=== PATIENT | female | born 1980 | race Caucasian/White ===

== ENCOUNTER 2018-06-02 11:31 | Inpatient (IN) | payer OTHER ==
[2018-06-02 12:50] LABS: ALB/GLOB RATIO 0.9 (1.1-1.8)
[2018-06-02 12:59] LABS: ALBUMIN 4.3 g/dL (3.0-4.8); ALT/SGPT 17 U/L (7-56); AST/SGOT 22 U/L (14-36); BLOOD UREA NITROGEN 14 mg/dL (7-21); CALCIUM 9.7 mg/dL (8.4-10.5); GFR NON-AFRICAN AMERICAN > 60
[2018-06-02 13:03] LABS: INR 1.02; PARTIAL THROMBOPLASTIN TIME 20.6 Seconds (25.1-36.5); PROTHROMBIN TIME 11.7 SECONDS (9.4-12.5)
[2018-06-02 13:12] LABS: BASO # 0.02 K/mm3 (0.0-2.0); BASO % 0.1 % (0.0-3.0); EOS # 0.1 (0.0-0.7); EOS % 0.4 % (1.5-5.0); GRAN # 11.65 (1.4-6.5); GRAN % 85.8 % (50.0-68.0); HEMOGLOBIN 10.9 g/dL (12.0-16.0); LYMPH # 1.4 (1.2-3.4); LYMPH % 10.5 % (22.0-35.0); MEAN CELL VOLUME 68.4 fl (80.0-105.0); MEAN CORPUSCULAR HEMOGLOBIN 23.3 pg (25.0-35.0); MEAN CORPUSCULAR HGB CONC 34.1 g/dl (31.0-37.0); MONO # 0.4 (0.1-0.6); MONO % 3.2 % (1.0-6.0); PLATELET COUNT 254 10^3/uL (120.0-450.0); RBC 4.68 10^6/uL (3.5-6.1); RED CELL DISTRIBUTION WIDTH 19.8 % (11.5-14.5); WHITE BLOOD COUNT 13.6 10^3/uL (4.5-11.0)
[2018-06-02 13:38] LABS: URINE BILIRUBIN NEGATIVE (NEGATIVE); URINE BLOOD NEGATIVE (NEGATIVE); URINE GLUCOSE (UA) NEGATIVE (NEGATIVE); URINE LEUKOCYTE ESTERASE NEGATIVE Leu/uL (NEGATIVE); URINE PROTEIN NEGATIVE mg/dL (<30 mg/dL); URINE UROBILINOGEN 0.2 E.U./dL (<1 E.U./dL)
[2018-06-02 13:44] LABS: URINE APPEARANCE CLEAR (CLEAR); URINE COLOR LIGHT YELLOW (YELLOW)
--- NOTE | 2018-06-02 14:13 | ED PDOC ---
Arrival/HPI - General Chief Complaint: Shortness Of Breath Time Seen by Provider: 06/02/18 12:08 Historian: Patient - History of Present Illness Narrative History of Present Illness (Text): 06/02/18 14:10 A 38 year old female, whose past medical history includes recent surgery of an arthroscopy repair on her left knee, presents to the emergency department complaining of shortness of breath and chest pain since earlier this morning. Patient describes pain as pressure and heaviness on her chest. Patient reports symptoms occurred when she was trying to grab a box of cereal from a cabinet when she suddenly started having chest pain and shortness of breath with lightheadedness. Patient denies any fever, chills, diarrhea, nausea, vomiting, urinary symptoms, back pain, neck pain, headache, dizziness, or any other complaints. Time/Duration: 4-6 hours (earlier this morning) Symptom Onset: Sudden Symptom Course: Unchanged Activities at Onset: Light Context: Home Past Medical History - Provider Review Nursing Documentation Reviewed: Yes - Cardiac Hx Hypertension: Yes - Hematological/Oncological Hx Anemia: Yes - Musculoskeletal/Rheumatological Hx Musculoskeletal Disorders: Yes Other/Comment: Left knee sx 05/22/18 - Gastrointestinal Hx Gastrointestinal Disorders: No - Genitourinary/Gynecological Hx Genitourinary Disorders: No - Psychiatric Hx Psychophysiologic Disorder: No Hx Substance Use: No - Surgical History Other/Comment: Left knee 05/22/18 - Anesthesia Hx Anesthesia: Yes Family/Social History - Physician Review Nursing Documentation Reviewed: Yes Family/Social History: No Known Family HX Smoking Status: Never Smoked Hx Alcohol Use: No Hx Substance Use: No Allergies/Home Meds Allergies/Adverse Reactions: Allergies No Known Allergies Allergy (Verified 06/02/18 11:40) Home Medications: Home Meds Medication Instructions Recorded Confirmed amLODIPine [Norvasc] 10 mg PO DAILY 06/02/18 06/02/18 Review of Systems - Physician Review All systems were reviewed & negative as marked: Yes - Review of Systems Constitutional: absent: Fevers, Night Sweats Respiratory: SOB Cardiovascular: Chest Pain, MCGOVERN Gastrointestinal: absent: Diarrhea, Nausea, Vomiting Genitourinary Female: absent: Urine Output Changes Musculoskeletal: absent: Back Pain, Neck Pain Neurological: absent: Headache, Dizziness Physical Exam Vital Signs Reviewed: Yes Vital Signs Temp Pulse Resp BP Pulse Ox 06/02/18 11:51 98 06/02/18 11:40 98.3 F 100 H 19 141/90 99 Temperature: Afebrile Blood Pressure: Normal Pulse: Tachycardic Respiratory Rate: Normal Appearance: Positive for: Well-Appearing - Systems Exam Head: Present: Atraumatic, Normocephalic Pupils: Present: PERRL Extroacular Muscles: Present: EOMI Conjunctiva: Present: Normal Respiratory/Chest: Present: Clear to Auscultation, Good Air Exchange. No: Respiratory Distress, Accessory Muscle Use Cardiovascular: Present: Regular Rate and Rhythm, Normal S1, S2. No: Murmurs Abdomen: No: Tenderness, Distention, Peritoneal Signs Back: Present: Normal Inspection Upper Extremity: Present: Normal Inspection. No: Cyanosis, Edema Lower Extremity: Present: Normal Inspection. No: Edema Neurological: Present: GCS=15, CN II-XII Intact, Speech Normal Skin: Present: Warm, Dry, Normal Color. No: Rashes Psychiatric: Present: Alert, Oriented x 3, Normal Insight, Normal Concentration Medical Decision Making ED Course and Treatment: 06/02/18 14:14 Impression: 38 year old female presents to the emergency department complaining of shortness of breath and chest pain. Plan: -- Angio Chest CT to r/o PE -- EKG -- Labs -- Chest X-ray -- Aspirin -- Reassess and disposition Prior Visits: Notes and results from previous visits were reviewed. Progress Notes: 06/02/18 19:04 Pt was hemodynamically stable and in no distress in ED EKG NSR @ 100bpm with moderate LVH N-stemi Labs was reviewed and elevated D-dimer , troponin and leukocytosis chest xray IMPRESSION: No active disease. chest CT IMPRESSION: Extensive pulmonary thromboembolism. Thrombus is seen in the periphery of the left main pulmonary artery with what appears to be occlusive thrombus left lower lobe and more peripheral segmental thrombi left upper lobe. Additional pulmonary embolism detected in right lower and right upper lobes. 6 mm pulmonary nodule left upper lobe. Elective follow-up recommended. PT was started on Heparin in ED. Case was DANYELLE Bowden who also saw pt by the bedside and accepted pt for admission to ICU Case was also DANYELLE Cao, Intensivsit and he accepted pt to ICU and saw pt in ED. All result and plan was DW the pt and she verbalized understanding. - Critical Care Critical Care Minutes: 45 minutes - Lab Interpretations Lab Results: 06/02/18 13:00 06/02/18 12:25 Lab Results 06/02/18 13:10: Urine Color Light yellow, Urine Appearance Clear, Urine pH 6.0, Ur Specific [place] 1.010, Urine Protein Negative, Urine Glucose (UA) Negative, Urine Ketones Negative, Urine Blood Negative, Urine Nitrate Negative, Urine Bilirubin Negative, Urine Urobilinogen 0.2, Ur Leukocyte Esterase Negative 06/02/18 13:00: WBC 13.6 H, RBC 4.68, Hgb 10.9 L, Hct 32.0 L, MCV 68.4 L, MCH 23.3 L, MCHC 34.1, RDW 19.8 H, Plt Count 254, Gran % 85.8 H, Lymph % (Auto) 10.5 L, [place] % (Auto) 3.2, Eos % (Auto) 0.4 L, Baso % (Auto) 0.1, Gran # 11.65 H, Lymph # (Auto) 1.4, [place] # (Auto) 0.4, Eos # (Auto) 0.1, Baso # (Auto) 0.02 06/02/18 12:25: Sodium 138, Potassium 4.3, Chloride 107, Carbon Dioxide 21, Anion Gap 14, BUN 14, Creatinine 0.6 L, Est GFR ( Amer) > 60, Est GFR (Non-Af Amer) > 60, Random Glucose 98, Calcium 9.7, Magnesium 2.0, Total Bilirubin 0.4, AST 22, ALT 17, Alkaline Phosphatase 62, Lactate Dehydrogenase 646, Total Creatine Kinase 45, Troponin I Pending, NT-Pro-B Natriuret Pep Pending, Total Protein 9.0 H, Albumin 4.3, Globulin 4.7, Albumin/Globulin Ratio 0.9 L 06/02/18 12:25: PT 11.7, INR 1.02, APTT 20.6 L, D-Dimer, Quantitative 4194 H - RAD Interpretation Radiology Orders: 06/02/18 12:18 CHEST PORTABLE [RAD] Stat 06/02/18 13:06 ANGIO CHEST PE PROTOCOL [CT] Stat - Medication Orders Current Medication Orders: Discontinued Medications Aspirin (Aspirin) 325 mg PO STAT STA Stop: 06/02/18 12:18 Last Admin: 06/02/18 12:25 Dose: 325 mg - Scribe Statement The provider has reviewed the documentation as recorded by the Colette Olivera All medical record entries made by the Colette were at my direction and personally dictated by me. I have reviewed the chart and agree that the record accurately reflects my personal performance of the history, physical exam, medical decision making, and the department course for this patient. I have also personally directed, reviewed, and agree with the discharge instructions and disposition. Disposition/Present on Arrival - Present on Arrival Any Indicators Present on Arrival: No History of DVT/PE: No History of Uncontrolled Diabetes: No Urinary Catheter: No History of Decub. Ulcer: No History Surgical Site Infection Following: None - Disposition Have Diagnosis and Disposition been Completed?: Yes Diagnosis: Pulmonary embolism, DVT (deep venous thrombosis) Disposition: HOSPITALIZED Disposition Time: 15:15 Patient Plan: Admission Patient Problems: Current Active Problems Problem Status Onset Pulmonary embolism Acute Condition: GUARDED
--- NOTE | 2018-06-02 14:20 | RAD ---
Date of service: 06/02/2018 HISTORY: chest pain COMPARISON: No prior. FINDINGS: LUNGS: No active pulmonary disease. PLEURA: No significant pleural effusion identified, no pneumothorax apparent. CARDIOVASCULAR: No atherosclerotic calcification present Normal. OSSEOUS STRUCTURES: No significant abnormalities. VISUALIZED UPPER ABDOMEN: Normal. OTHER FINDINGS: None. IMPRESSION: No active disease.
[2018-06-02 14:29] LABS: BARBITURATES, UR NEGATIVE (NEGATIVE); BENZODIAZEPINES, UR NEGATIVE (NEGATIVE); OPIATES, UR NEGATIVE (NEGATIVE); PHENCYCLIDINE, UR NEGATIVE (NEGATIVE)
[2018-06-02 14:32] LABS: B-TYPE NATRIURETIC PEPTIDE 44.2 pg/mL (0-450); TROPONIN I 0.25 ng/mL
[2018-06-02] MEDS ORDERED: Iohexol 350 MG/100 ML VIAL ONE (14:49)
[2018-06-02] MEDS ORDERED: Heparin25000 units/250ml 1/2NS 25,000 UNITS/250 ML BAG IV PRN (15:30)
--- NOTE | 2018-06-02 15:31 | CT ---
Date of service: 06/02/2018 PROCEDURE: CT Chest with contrast (Pulmonary Angiogram) HISTORY: SOB/chest pain COMPARISON: None available. TECHNIQUE: Axial computed tomography images were obtained of the chest in the pulmonary arterial phase of enhancement. Coronal and sagittal reformatted images were created and reviewed. Intravenous contrast dose: 100 cc Omnipaque 350 Mean Hounsfield value in the main pulmonary artery: 265.44 Radiation dose: Total exam DLP = 475.90 mGy-cm. This CT exam was performed using one or more of the following dose reduction techniques: Automated exposure control, adjustment of the mA and/or kV according to patient size, and/or use of iterative reconstruction technique. FINDINGS: PULMONARY ARTERIES: Extensive pulmonary embolus. There appears to be a complete occlusion of the left lower lobe pulmonary artery. Thrombus can also be seen in the left main pulmonary artery and segmental branches of the left upper lobe pulmonary artery. Additional emboli noted in segmental and subsegmental branches right lower lobe. Smaller thrombus seen in the right upper lobe. No evidence of right ventricular strain. The interventricular septum assumes a normal configuration. There is no evidence of reflux into the IVC or hepatic arteries. AORTA: No acute findings. No thoracic aortic aneurysm. No atherosclerotic calcification or mural plaque present. LUNGS: No evidence of pulmonary infarction. 6 mm peripheral nodule left upper lobe. PLEURAL SPACES: Unremarkable. No effusion or pneumothorax. HEART: Unremarkable. No cardiomegaly. No significant pericardial effusion. LYMPH NODES: No lymphadenopathy. BONES, CHEST WALL: Unremarkable. No fracture or destructive lesion OTHER FINDINGS: Unremarkable. IMPRESSION: Extensive pulmonary thromboembolism. Thrombus is seen in the periphery of the left main pulmonary artery with what appears to be occlusive thrombus left lower lobe and more peripheral segmental thrombi left upper lobe. Additional pulmonary embolism detected in right lower and right upper lobes. 6 mm pulmonary nodule left upper lobe. Elective follow-up recommended. Critical results protocol: Study completed at 15:00. Verbal results provided at 15:21. I spoke directly with the attending physician in the emergency department Dr. Ness.
--- NOTE | 2018-06-02 15:42 | CP.PCM.HP ---
<Gt Dunlap - Last Filed: 06/02/18 15:39> History of Present Illness - History of Present Illness History of Present Illness: 38 year old female with past medical history of HTN, microcytic anemia, and left knee arthroscopic surgery presents to the hospital for sudden onset shortness of breath that began 7 hours ago. Patient states she was reaching for cereal and felt severe pressure in her chest that led to shortness of breath. Patient states the pain is constant and substernal. She tried using a nebulizer for her symptoms which did not help. Patient had left knee surgery at [facility] on 05/22/18. She has been mainly immobile since her surgery, only getting us to use the restroom. Patient was advised to take aspirin after her surgery and has been compliant. Denies nausea, vomiting, diarrhea, fever, chills, dysuria, headaches. PMH: HTN, microcytic anemia Surgical Hx: Left knee surgery Family Hx: Parents from COPD, Asthma Social Hx: Denies tobacco or illicit drug use. Admits to occasional alcohol use Medications: Norvasc 10 mg daily, OCP Allergies: NKDA Present on Admission - Present on Admission Any Indicators Present on Admission: No Review of Systems - Review of Systems Review of Systems: 12 point ROS as per HPI, otherwise negative Past Patient History - Past Social History Smoking Status: Never Smoked - CARDIAC Hx Hypertension: Yes - HEMATOLOGICAL/ONCOLOGICAL Hx Anemia: Yes - MUSCULOSKELETAL/RHEUMATOLOGICAL Hx Musculoskeletal Disorders: Yes Other/Comment: Left knee sx 05/22/18 - GASTROINTESTINAL Hx Gastrointestinal Disorders: No - GENITOURINARY/GYNECOLOGICAL Hx Genitourinary Disorders: No - PSYCHIATRIC Hx Psychophysiologic Disorder: No Hx Substance Use: No - SURGICAL HISTORY Other/Comment: Left knee 05/22/18 - ANESTHESIA Hx Anesthesia: Yes Meds Allergies/Adverse Reactions: Allergies Allergy/AdvReac Type Severity Reaction Status Date / Time No Known Allergies Allergy Verified 06/02/18 11:40 Physical Exam - Constitutional Appears: Non-toxic, No Acute Distress - Head Exam Head Exam: ATRAUMATIC, NORMAL INSPECTION, NORMOCEPHALIC - Eye Exam Eye Exam: EOMI, Normal appearance - ENT Exam ENT Exam: Mucous Membranes Moist, Normal Exam - Neck Exam Neck exam: Positive for: Normal Inspection - Respiratory Exam Respiratory Exam: Decreased Breath Sounds, NORMAL BREATHING PATTERN. absent: Rales, Rhonchi, Wheezes - Cardiovascular Exam Cardiovascular Exam: Tachycardia, REGULAR RHYTHM, +S1, +S2 - GI/Abdominal Exam GI & Abdominal Exam: Normal Bowel Sounds, Soft, Tenderness (Mild) - Extremities Exam Extremities exam: Positive for: pedal edema (+1 edema b/l) - Neurological Exam Neurological exam: Alert, CN II-XII Intact, Oriented x3 - Psychiatric Exam Psychiatric exam: Normal Affect, Normal Mood - Skin Skin Exam: Intact, Normal Color, Warm Results - Vital Signs Recent Vital Signs: Last Vital Signs Temp 97.9 F 06/02/18 14:18 Pulse 96 H 06/02/18 14:18 Resp 18 06/02/18 14:18 BP 122/75 06/02/18 14:18 Pulse Ox 96 06/02/18 14:18 - Labs Result Diagrams: 06/02/18 13:00 06/02/18 12:25 Labs: Laboratory Results - last 24 hr 06/02/18 06/02/18 06/02/18 12:25 12:25 13:00 WBC 13.6 H RBC 4.68 Hgb 10.9 L Hct 32.0 L MCV 68.4 L MCH 23.3 L MCHC 34.1 RDW 19.8 H Plt Count 254 Gran % 85.8 H Lymph % (Auto) 10.5 L [place] % (Auto) 3.2 Eos % (Auto) 0.4 L Baso % (Auto) 0.1 Gran # 11.65 H Lymph # (Auto) 1.4 [place] # (Auto) 0.4 Eos # (Auto) 0.1 Baso # (Auto) 0.02 PT 11.7 INR 1.02 APTT 20.6 L D-Dimer, Quantitative 4194 H Sodium 138 Potassium 4.3 Chloride 107 Carbon Dioxide 21 Anion Gap 14 BUN 14 Creatinine 0.6 L Est GFR ( Amer) > 60 Est GFR (Non-Af Amer) > 60 Random Glucose 98 Calcium 9.7 Magnesium 2.0 Total Bilirubin 0.4 AST 22 ALT 17 Alkaline Phosphatase 62 Lactate Dehydrogenase 646 Total Creatine Kinase 45 Troponin I 0.25 H* NT-Pro-B Natriuret Pep 44.2 Total Protein 9.0 H Albumin 4.3 Globulin 4.7 Albumin/Globulin Ratio 0.9 L Urine Color Urine Appearance Urine pH Ur Specific [place] Urine Protein Urine Glucose (UA) Urine Ketones Urine Blood Urine Nitrate Urine Bilirubin Urine Urobilinogen Ur Leukocyte Esterase Urine Opiates Screen Urine Methadone Screen Ur Barbiturates Screen Ur Phencyclidine Scrn Ur Amphetamines Screen U Benzodiazepines Scrn U Oth Cocaine Metabols U Cannabinoids Screen 06/02/18 06/02/18 13:10 13:10 WBC RBC Hgb Hct MCV MCH MCHC RDW Plt Count Gran % Lymph % (Auto) [place] % (Auto) Eos % (Auto) Baso % (Auto) Gran # Lymph # (Auto) [place] # (Auto) Eos # (Auto) Baso # (Auto) PT INR APTT D-Dimer, Quantitative Sodium Potassium Chloride Carbon Dioxide Anion Gap BUN Creatinine Est GFR ( Amer) Est GFR (Non-Af Amer) Random Glucose Calcium Magnesium Total Bilirubin AST ALT Alkaline Phosphatase Lactate Dehydrogenase Total Creatine Kinase Troponin I NT-Pro-B Natriuret Pep Total Protein Albumin Globulin Albumin/Globulin Ratio Urine Color Light yellow Urine Appearance Clear Urine pH 6.0 Ur Specific [place] 1.010 Urine Protein Negative Urine Glucose (UA) Negative Urine Ketones Negative Urine Blood Negative Urine Nitrate Negative Urine Bilirubin Negative Urine Urobilinogen 0.2 Ur Leukocyte Esterase Negative Urine Opiates Screen Negative Urine Methadone Screen Negative Ur Barbiturates Screen Negative Ur Phencyclidine Scrn Negative Ur Amphetamines Screen Negative U Benzodiazepines Scrn Negative U Oth Cocaine Metabols Negative U Cannabinoids Screen Negative Assessment & Plan - Assessment and Plan (Free Text) Plan: 38 year old female with past medical history of HTN and microcytic anemia presents with submassive provoked PE. Patient will be placed on Heparin drip and transferred to ICU for further care and management. 1. Submassive PE Hemodynamically stable Heparin Drip Supplemental O2 as needed Echocardiogram Cardiology consult, Dr. Brasher Pulmonolgy consult, Dr. Cao Troponin elevated, trend q6h x2 2. HTN Hold BP meds at this time 3. Microcytic anemia Stable, recheck in AM 4. Prophylaxis Heparin drip Protonix Germán, PGY-3 <Eryn Bowden R - Last Filed: 06/02/18 17:58> Results - Vital Signs Recent Vital Signs: Last Vital Signs Temp 97.9 F 06/02/18 14:18 Pulse 96 H 06/02/18 17:17 Resp 18 06/02/18 17:17 BP 125/84 06/02/18 17:17 Pulse Ox 99 06/02/18 17:17 - Labs Result Diagrams: 06/02/18 13:00 06/02/18 12:25 Labs: Laboratory Results - last 24 hr 06/02/18 06/02/18 06/02/18 12:25 12:25 13:00 WBC 13.6 H RBC 4.68 Hgb 10.9 L Hct 32.0 L MCV 68.4 L MCH 23.3 L MCHC 34.1 RDW 19.8 H Plt Count 254 Gran % 85.8 H Lymph % (Auto) 10.5 L [place] % (Auto) 3.2 Eos % (Auto) 0.4 L Baso % (Auto) 0.1 Gran # 11.65 H Lymph # (Auto) 1.4 [place] # (Auto) 0.4 Eos # (Auto) 0.1 Baso # (Auto) 0.02 PT 11.7 INR 1.02 APTT 20.6 L D-Dimer, Quantitative 4194 H Sodium 138 Potassium 4.3 Chloride 107 Carbon Dioxide 21 Anion Gap 14 BUN 14 Creatinine 0.6 L Est GFR ( Amer) > 60 Est GFR (Non-Af Amer) > 60 Random Glucose 98 Calcium 9.7 Magnesium 2.0 Total Bilirubin 0.4 AST 22 ALT 17 Alkaline Phosphatase 62 Lactate Dehydrogenase 646 Total Creatine Kinase 45 Troponin I 0.25 H* NT-Pro-B Natriuret Pep 44.2 Total Protein 9.0 H Albumin 4.3 Globulin 4.7 Albumin/Globulin Ratio 0.9 L Urine Color Urine Appearance Urine pH Ur Specific [place] Urine Protein Urine Glucose (UA) Urine Ketones Urine Blood Urine Nitrate Urine Bilirubin Urine Urobilinogen Ur Leukocyte Esterase Urine Opiates Screen Urine Methadone Screen Ur Barbiturates Screen Ur Phencyclidine Scrn Ur Amphetamines Screen U Benzodiazepines Scrn U Oth Cocaine Metabols U Cannabinoids Screen 06/02/18 06/02/18 13:10 13:10 WBC RBC Hgb Hct MCV MCH MCHC RDW Plt Count Gran % Lymph % (Auto) [place] % (Auto) Eos % (Auto) Baso % (Auto) Gran # Lymph # (Auto) [place] # (Auto) Eos # (Auto) Baso # (Auto) PT INR APTT D-Dimer, Quantitative Sodium Potassium Chloride Carbon Dioxide Anion Gap BUN Creatinine Est GFR ( Amer) Est GFR (Non-Af Amer) Random Glucose Calcium Magnesium Total Bilirubin AST ALT Alkaline Phosphatase Lactate Dehydrogenase Total Creatine Kinase Troponin I NT-Pro-B Natriuret Pep Total Protein Albumin Globulin Albumin/Globulin Ratio Urine Color Light yellow Urine Appearance Clear Urine pH 6.0 Ur Specific [place] 1.010 Urine Protein Negative Urine Glucose (UA) Negative Urine Ketones Negative Urine Blood Negative Urine Nitrate Negative Urine Bilirubin Negative Urine Urobilinogen 0.2 Ur Leukocyte Esterase Negative Urine Opiates Screen Negative Urine Methadone Screen Negative Ur Barbiturates Screen Negative Ur Phencyclidine Scrn Negative Ur Amphetamines Screen Negative U Benzodiazepines Scrn Negative U Oth Cocaine Metabols Negative U Cannabinoids Screen Negative Attending/Attestation - Attestation I have personally seen and examined this patient.: Yes I have fully participated in the care of the patient.: Yes I have reviewed all pertinent clinical information: Yes Notes (Text): Chief complaint: "Chest pressure and shortness of breath" Patient seen and examined by me with resident at 3:10 PM on 06/02/18. Case including HPI, physical exam, and assessment and plan discussed with resident. Agree with above with following additions/corrections. Patient is a 38-year-old female past medical history significant for hypertension and anemia that presents to the emergency room with chest pressure and shortness of breath. Patient states that she had left knee surgery for ligament tear at [facility] on 05/22/2018. She states that she was discharged at that time with Percocet, aspirin 81 mg, and Colace. Patient st ates that she has been taking the aspirin. She states that she has been ambulating only to go to the restroom. Patient states that she also takes a control pill. Denies any tobacco use. He states that around 8 AM this morning, patient tried to reach for a box of cereal when she felt some chest pressure in the center of her chest. She then became short of breath and lightheaded. She also felt some dizziness. There is no radiation of the chest pressure. Patient states that she was unable to take deep breaths. She states that she tried a nebulizer treatment at home with no relief. She states that the pressure and shortness of breath was constant. She waited approximately 2 hours and then decided to call the ambulance to bring her to the emergency room as she had no relief. She denies any palpitations. No nausea, vomiting, or abdominal pain. No headaches or change in vision. No fevers or chills. No neck or back pain. No dysuria. No diarrhea or constipation. Patient states that she is having some pain in her left lower extremity where she had surgery but is able to ambulate. She uses a walker to ambulate. 12 point review of systems reviewed by me. Please see above HPI, all other s ystems negative. Surgical history: Recent left knee surgery on 05/22/2018 for ligament tear at [facility] Family history: Mother and had a history of asthma. Father and had a history of COPD. 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 Patient denies any tobacco or illicit drug use. She states she drinks alcohol socially. Physical exam: General: Awake and alert lying in bed in no acute distress HEENT: Normocephalic, atraumatic. Extraocular muscles intact, pupils equal and reactive, no scleral icterus. Oropharynx is pink and moist. No pharyngeal e rythema or exudate appreciated. Neck is supple. Hearing grossly intact. Ears and nose externally unremarkable. Cardiovascular: Tachycardic S1 and S2.No murmurs, rubs, or gallops appreciated Pulmonary: Normal respiratory effort. Decreased breath sounds. No rhonchi, rales, or wheezing appreciated. Gastrointestinal: Soft, nondistended. Nontender. Positive bowel sounds all 4 quadrants. No guarding.Positive obese abdomen Musculoskeletal: Moves all extremities. Bilateral lower extremity calf tende rness. I lateral lower mcnamara medial edema. Left lower extremity with Logan wrapping and brace in place. No CVA tenderness. Central nervous system: AAO x3, CN II through XII grossly intact. Dermatologic: Skin warm and dry. Assessment and plan: Patient is a 38-year-old female past medical history sig nificant for hypertension and anemia that presents to the emergency room with chest pressure and shortness of breath. Patient states that she had left knee surgery for ligament tear at [facility] on 05/22/2018. 1. Extensive bilateral pulmonary emboli. Should with recent surgery and has been immobile. Also taking oral contraceptive pill. CTA chest per radiologist shows extensive pulmonary thromboembolus, thrombus is seen in the periphery of the left main pulmonary artery with what appears to be occlusive thrombus left lower lobe and more peripheral segmental thrombi left upper lobe, additional pulmonary embolus detected in the right lower and right upper lobes, 6 mm pulmonary nodule left upper lobe, elective follow-up recommended. Patient started on heparin drip. Risks of blood thinners including increased risk of bleeding discussed at length with patient. Patient understands and agrees to be on blood thinners. Patient given ASA in ED. Troponin 0.25. D-Dimer 4194. Follow up 2d Echo. Follow up bilateral lower extremity venous dopplers. ICU/Pulm consulted. Cardio consult ed. Monitor vitals closely. 2. Anemia. Chronic per patient. Patient does get iron infusions as outpatient. Will need to check stool for occult blood as patient is on heparin drip and will need to be anticoagulated. Monitor H&H. 3. Essential hypertension. Home norvasc held for now. Monitor blood pressure and add once stabilzed or if needed. 4. GI/DVT prophylaxis. Protonix/heparin drip 5. Patient is a full code. Case was discussed in detail with the patient and patient's family at bedside with patient's permission regarding current diagnosis and treatment plan. All questions answered.
[2018-06-02 16:10] VITALS: BMI 37.3
[2018-06-02] MEDS: Heparin 25,000units in 1/2NS /250 ML BAG IV PRN (16:12)
--- NOTE | 2018-06-02 20:32 | CP.PCM.CON ---
<Parris Valle - Last Filed: 06/02/18 20:57> History of Present Illness - History of Present Illness History of Present Illness: Parris Valle DO, PGY-2: ICU Consult Note for Dr. Thorne: Night doctor 38 year old female with past medical history of HTN, microcytic anemia, and left knee arthroscopic surgery presents to the hospital for sudden onset shortness of breath that began 7 hours ago. Patient states she was reaching for cereal and felt severe pressure in her chest that led to shortness of breath. Patient states the pain is constant and substernal. She tried using a nebulizer for her symptoms which did not help. Patient had left knee surgery at [facility] on 05/22/18. She has been mainly immobile since her surgery, only getting us to use the restroom. Patient was advised to take aspirin after her surgery and has been compliant. Denies nausea, vomiting, diarrhea, fever, chills, dysuria, headaches. At the time of my examination the patient was saturating 100% on ambient air, speaking in full sentences, blood pressure well controlled, in not acute distress. She was accepted to the ICU for closer observation. PMH: HTN, microcytic anemia Surgical Hx: Left knee surgery Family Hx: Parents from COPD, Asthma Social Hx: Denies tobacco or illicit drug use. Admits to occasional alcohol use Medications: Norvasc 10 mg daily, OCP Allergies: NKDA Review of Systems - Review of Systems All systems: reviewed and no additional remarkable complaints except (as per HPI) Past Patient History - Past Social History Smoking Status: Never Smoked - CARDIAC Hx Hypertension: Yes - HEMATOLOGICAL/ONCOLOGICAL Hx Anemia: Yes - MUSCULOSKELETAL/RHEUMATOLOGICAL Hx Musculoskeletal Disorders: Yes Other/Comment: Left knee sx 05/22/18 - GASTROINTESTINAL Hx Gastrointestinal Disorders: No - GENITOURINARY/GYNECOLOGICAL Hx Genitourinary Disorders: No - PSYCHIATRIC Hx Psychophysiologic Disorder: No Hx Substance Use: No - SURGICAL HISTORY Other/Comment: Left knee 05/22/18 - ANESTHESIA Hx Anesthesia: Yes Meds Allergies/Adverse Reactions: Allergies Allergy/AdvReac Type Severity Reaction Status Date / Time No Known Allergies Allergy Verified 06/02/18 11:40 - Medications Medications: Current Medications Heparin Sodium/Sodium Chloride (Heparin 15847 Units/250ml 1/2 Normal Saline) 25,000 units in 250 mls @ 19.481 mls/hr IV .[id number] PRN; Protocol PRN Reason: ADJUST RATE PER PROTOCOL Last Admin: 06/02/18 16:12 Dose: 19.481 mls/hr Pantoprazole Sodium (Protonix Inj) 40 mg IVP DAILY R[facility]ARD Physical Exam - Constitutional Appears: Well, Non-toxic - Head Exam Head Exam: ATRAUMATIC, NORMOCEPHALIC - Eye Exam Eye Exam: EOMI, Normal appearance - ENT Exam ENT Exam: Mucous Membranes Moist, Normal Oropharynx - Neck Exam Neck exam: Positive for: Normal Inspection - Respiratory Exam Respiratory Exam: Clear to Auscultation Bilateral, NORMAL BREATHING PATTERN. absent: Accessory Muscle Use - Cardiovascular Exam Cardiovascular Exam: RRR, +S1, +S2 - GI/Abdominal Exam GI & Abdominal Exam: absent: Guarding, Rebound - Extremities Exam Extremities exam: Positive for: normal inspection. Negative for: calf tenderness - Back Exam Back exam: NORMAL INSPECTION. absent: CVA tenderness (L), CVA tenderness (R) - Neurological Exam Neurological exam: Alert, CN II-XII Intact, Oriented x3 - Psychiatric Exam Psychiatric exam: Normal Affect, Normal Mood - Skin Skin Exam: Dry, Intact, Normal Color, Warm Results - Vital Signs Recent Vital Signs: Last Vital Signs Temp 98 F 06/02/18 20:02 Pulse 94 H 06/02/18 20:02 Resp 16 06/02/18 20:02 BP 120/79 06/02/18 20:02 Pulse Ox 98 06/02/18 20:02 - Labs Result Diagrams: 06/02/18 13:00 06/02/18 12:25 Labs: Laboratory Results - last 24 hr 06/02/18 06/02/18 06/02/18 12:25 12:25 13:00 WBC 13.6 H RBC 4.68 Hgb 10.9 L Hct 32.0 L MCV 68.4 L MCH 23.3 L MCHC 34.1 RDW 19.8 H Plt Count 254 Gran % 85.8 H Lymph % (Auto) 10.5 L Riley % (Auto) 3.2 Eos % (Auto) 0.4 L Baso % (Auto) 0.1 Gran # 11.65 H Lymph # (Auto) 1.4 Riley # (Auto) 0.4 Eos # (Auto) 0.1 Baso # (Auto) 0.02 PT 11.7 INR 1.02 APTT 20.6 L D-Dimer, Quantitative 4194 H Sodium 138 Potassium 4.3 Chloride 107 Carbon Dioxide 21 Anion Gap 14 BUN 14 Creatinine 0.6 L Est GFR ( Amer) > 60 Est GFR (Non-Af Amer) > 60 Random Glucose 98 Calcium 9.7 Magnesium 2.0 Total Bilirubin 0.4 AST 22 ALT 17 Alkaline Phosphatase 62 Lactate Dehydrogenase 646 Total Creatine Kinase 45 Troponin I 0.25 H* NT-Pro-B Natriuret Pep 44.2 Total Protein 9.0 H Albumin 4.3 Globulin 4.7 Albumin/Globulin Ratio 0.9 L Urine Color Urine Appearance Urine pH Ur Specific [place] Urine Protein Urine Glucose (UA) Urine Ketones Urine Blood Urine Nitrate Urine Bilirubin Urine Urobilinogen Ur Leukocyte Esterase Urine Opiates Screen Urine Methadone Screen Ur Barbiturates Screen Ur Phencyclidine Scrn Ur Amphetamines Screen U Benzodiazepines Scrn U Oth Cocaine Metabols U Cannabinoids Screen 06/02/18 06/02/18 06/02/18 13:10 13:10 18:56 WBC RBC Hgb Hct MCV MCH MCHC RDW Plt Count Gran % Lymph % (Auto) Riley % (Auto) Eos % (Auto) Baso % (Auto) Gran # Lymph # (Auto) Riley # (Auto) Eos # (Auto) Baso # (Auto) PT INR APTT D-Dimer, Quantitative Sodium Potassium Chloride Carbon Dioxide Anion Gap BUN Creatinine Est GFR ( Amer) Est GFR (Non-Af Amer) Random Glucose Calcium Magnesium Total Bilirubin AST ALT Alkaline Phosphatase Lactate Dehydrogenase Total Creatine Kinase Troponin I 0.57 H* D NT-Pro-B Natriuret Pep Total Protein Albumin Globulin Albumin/Globulin Ratio Urine Color Light yellow Urine Appearance Clear Urine pH 6.0 Ur Specific [place] 1.010 Urine Protein Negative Urine Glucose (UA) Negative Urine Ketones Negative Urine Blood Negative Urine Nitrate Negative Urine Bilirubin Negative Urine Urobilinogen 0.2 Ur Leukocyte Esterase Negative Urine Opiates Screen Negative Urine Methadone Screen Negative Ur Barbiturates Screen Negative Ur Phencyclidine Scrn Negative Ur Amphetamines Screen Negative U Benzodiazepines Scrn Negative U Oth Cocaine Metabols Negative U Cannabinoids Screen Negative Assessment & Plan - Assessment and Plan (Free Text) Assessment: 38 year old female with acute onset chest pain and shortness of breath in the setting of recent surgery who was found to have a extensive pulmonary thromboembolism on CTA of chest without evidence of right heart strain. She was started on heparin drip and will be admitted to the ICU for closer monitoring. She will undergo ultrasound of the heart and has already underwent US of the lower extremities, which is pending interpretation. We will get a lipid panel and follow the patient closely in the ICU. Case was reviewed and discussed with attending physician, Dr. Thorne - Date & Time Date: 06/02/18 Time: 20:56 <Vik Thorne - Last Filed: 06/02/18 21:03> Meds - Medications Medications: Current Medications Heparin Sodium/Sodium Chloride (Heparin 71036 Units/250ml 1/2 Normal Saline) 25,000 units in 250 mls @ 19.481 mls/hr IV .[id number] PRN; Protocol PRN Reason: ADJUST RATE PER PROTOCOL Last Titration: 06/02/18 16:12 Dose: 18 units/kg/hr, 19.481 mls/hr Pantoprazole Sodium (Protonix Inj) 40 mg IVP DAILY RICHARD Results - Vital Signs Recent Vital Signs: Last Vital Signs Temp 98 F 06/02/18 20:02 Pulse 94 H 06/02/18 20:02 Resp 16 06/02/18 20:02 BP 120/79 06/02/18 20:02 Pulse Ox 98 06/02/18 20:02 - Labs Result Diagrams: 06/02/18 13:00 06/02/18 12:25 Labs: Laboratory Results - last 24 hr 06/02/18 06/02/18 06/02/18 12:25 12:25 13:00 WBC 13.6 H RBC 4.68 Hgb 10.9 L Hct 32.0 L MCV 68.4 L MCH 23.3 L MCHC 34.1 RDW 19.8 H Plt Count 254 Gran % 85.8 H Lymph % (Auto) 10.5 L Riley % (Auto) 3.2 Eos % (Auto) 0.4 L Baso % (Auto) 0.1 Gran # 11.65 H Lymph # (Auto) 1.4 Riley # (Auto) 0.4 Eos # (Auto) 0.1 Baso # (Auto) 0.02 PT 11.7 INR 1.02 APTT 20.6 L D-Dimer, Quantitative 4194 H Sodium 138 Potassium 4.3 Chloride 107 Carbon Dioxide 21 Anion Gap 14 BUN 14 Creatinine 0.6 L Est GFR ( Amer) > 60 Est GFR (Non-Af Amer) > 60 Random Glucose 98 Calcium 9.7 Magnesium 2.0 Total Bilirubin 0.4 AST 22 ALT 17 Alkaline Phosphatase 62 Lactate Dehydrogenase 646 Total Creatine Kinase 45 Troponin I 0.25 H* NT-Pro-B Natriuret Pep 44.2 Total Protein 9.0 H Albumin 4.3 Globulin 4.7 Albumin/Globulin Ratio 0.9 L Urine Color Urine Appearance Urine pH Ur Specific [place] Urine Protein Urine Glucose (UA) Urine Ketones Urine Blood Urine Nitrate Urine Bilirubin Urine Urobilinogen Ur Leukocyte Esterase Urine Opiates Screen Urine Methadone Screen Ur Barbiturates Screen Ur Phencyclidine Scrn Ur Amphetamines Screen U Benzodiazepines Scrn U Oth Cocaine Metabols U Cannabinoids Screen 06/02/18 06/02/18 06/02/18 13:10 13:10 18:56 WBC RBC Hgb Hct MCV MCH MCHC RDW Plt Count Gran % Lymph % (Auto) Riley % (Auto) Eos % (Auto) Baso % (Auto) Gran # Lymph # (Auto) Riley # (Auto) Eos # (Auto) Baso # (Auto) PT INR APTT D-Dimer, Quantitative Sodium Potassium Chloride Carbon Dioxide Anion Gap BUN Creatinine Est GFR ( Amer) Est GFR (Non-Af Amer) Random Glucose Calcium Magnesium Total Bilirubin AST ALT Alkaline Phosphatase Lactate Dehydrogenase Total Creatine Kinase Troponin I 0.57 H* D NT-Pro-B Natriuret Pep Total Protein Albumin Globulin Albumin/Globulin Ratio Urine Color Light yellow Urine Appearance Clear Urine pH 6.0 Ur Specific [place] 1.010 Urine Protein Negative Urine Glucose (UA) Negative Urine Ketones Negative Urine Blood Negative Urine Nitrate Negative Urine Bilirubin Negative Urine Urobilinogen 0.2 Ur Leukocyte Esterase Negative Urine Opiates Screen Negative Urine Methadone Screen Negative Ur Barbiturates Screen Negative Ur Phencyclidine Scrn Negative Ur Amphetamines Screen Negative U Benzodiazepines Scrn Negative U Oth Cocaine Metabols Negative U Cannabinoids Screen Negative Attending/Attestation - Attestation I have personally seen and examined this patient.: Yes I have fully participated in the care of the patient.: Yes I have reviewed all pertinent clinical information: Yes Notes (Text): 06/02/18 21:01 Submassive PE Elevated troponin Wet reading on LLE U/S + DVT 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
--- NOTE | 2018-06-02 21:48 | US ---
HISTORY: Leg pain and swelling. Evaluate for DVT PHYSICIAN(S): Donavan Servin MD. TECHNIQUE: Duplex sonography and color-flow Doppler with graded compression were used to evaluate the deep venous systems of both lower extremities. FINDINGS: There is hypoechoic acute occlusive thrombus in the right mid to distal femoral vein and right popliteal vein. The right common femoral vein and proximal right femoral vein are patent and compressible There is no sonographic evidence for deep venous thrombosis in the visualized segments of the left lower extremity. Incidental note is made of a complex 5.3 x 6 cm subcutaneous fluid collection in the left popliteal fossa. IMPRESSION: Acute occlusive thrombus in the right mid to distal femoral vein and popliteal vein
[2018-06-03 05:26] LABS: HEMOGLOBIN 10.5 g/dL (12.0-16.0); MEAN CELL VOLUME 69.1 fl (80.0-105.0); MEAN CORPUSCULAR HGB CONC 33.2 g/dl (31.0-37.0); PLATELET COUNT 255 10^3/uL (120.0-450.0); RBC 4.57 10^6/uL (3.5-6.1); RED CELL DISTRIBUTION WIDTH 19.6 % (11.5-14.5); WHITE BLOOD COUNT 9.5 10^3/uL (4.5-11.0)
[2018-06-03 05:36] LABS: ALB/GLOB RATIO 0.9 (1.1-1.8); ALBUMIN 3.7 g/dL (3.0-4.8); ALT/SGPT 15 U/L (7-56); AST/SGOT 20 U/L (14-36); BLOOD UREA NITROGEN 13 mg/dL (7-21); CALCIUM 9.2 mg/dL (8.4-10.5); GFR NON-AFRICAN AMERICAN > 60; HDL CHOLESTEROL 67 mg/dL (29-60)
[2018-06-03] MEDS: Heparin 25,000units in 1/2NS /250 ML BAG IV PRN ×2 (05:40→19:39)
[2018-06-03 05:47] LABS: LDL CHOLESTEROL 123 mg/dL (0-129)
[2018-06-03] MEDS ORDERED: Morphine 2 mg/ml ISec IVP STA (06:33)
--- NOTE | 2018-06-03 09:04 | CARD ---
APPROVED REPORT Date of service: 06/02/2018 EKG Measurement Heart [id number] <Conclusion> Normal sinus rhythm LVH NSSTW changes
--- NOTE | 2018-06-03 09:55 | PN ---
DATE: 06/03/2018 SUBJECTIVE: The patient is resting in bed, states that she has significant improvement in her shortness of breath and no chest pain this morning. She does have discomfort in the right lower extremity. She has 100% O2 saturation on room air. No cough. No congestion. No fever, chills, nausea or vomiting. No abdominal pain or chest pain. The patient is on heparin drip. PHYSICAL EXAMINATION: VITAL SIGNS: Note that her temperature is 98.3, pulse is 85, respirations are 19 and BP is 116/71. SKIN: Warm and dry. HEENT: Head atraumatic, normocephalic. Eyes reactive to light. Ears, nose and throat seem to be within normal limits. NECK: Supple. No JVD. No thyroid enlargement or lymph nodes. HEART: Has regular rate and rhythm. Normal S1, S2. LUNGS: Reveal good breath sounds bilaterally. ABDOMEN: Soft. Decreased bowel sounds. GENITALIA AND RECTAL: Deferred. MUSCULOSKELETAL: No joint deformities but there is some swelling in the left knee and leg. NEUROLOGIC: She seemed to be grossly intact. LABORATORY DATA: As far as her laboratories are concerned, her white count is 9.5, hemoglobin is 10.5, hematocrit 31.6 with platelets of 255,000. Sodium is 137, potassium 3.8, chloride 107, CO2 of 21 with a BUN of 13, creatinine of 0.7 and a glucose of 101. Ultrasound of the lower extremities revealed that there is acute occlusive thrombus in the right mid to distal femoral vein and popliteal vein. The patient's CT of the chest reveals extensive pulmonary thromboembolism. The thrombus is seen in the periphery of the left main pulmonary artery with what appears to be occlusive thrombus left lower lobe and more peripheral segment thrombi left upper lobe. Additional pulmonary embolus detected in the right lower and right upper lobes. There is a 6 mm pulmonary nodule in the left upper lobe. IMPRESSION: As far as my impression, this patient has bilateral pulmonary embolus. She has a right lower extremity deep venous thrombosis and it is noted that she is status post a left arthroscopic surgery. The patient has left upper lobe 6 mm lung nodule I should say and anemia which is noted to be iron deficiency anemia. The patient also has increased troponins and they will be followed and Cardiology is on board. PLAN: As far as our plan, we will continue to observe closely in the ICU. The patient is getting heparin IV. We will follow her PTT and PT/INR. She is on Protonix as well. We will continue to treat aggressively along with the other consultants and the primary care doctor. Leandro Cao MD
--- NOTE | 2018-06-03 15:08 | CP.PCM.PN ---
<Brandon Bowden - Last Filed: 06/03/18 15:02> Subjective - Date & Time of Evaluation Date of Evaluation: 06/03/18 Time of Evaluation: 15:02 - Subjective Subjective: Brandon Kal DO PGY 1 Internal Medicine [facility] - Medicine Progress Note Patient was seen and examined at bedside this morning in ICU She is still complaining of shortness of breath this morning, as well as chest pain; however she reports these have improved from her initial presentation. Patient is also complaining of painful sensation in her R leg; and is reporting improving pain in her Left leg. She denies any abd pain, n/v/d/c, urinary complaints. She is tolerating diet well. Objective - Vital Signs/Intake and Output Vital Signs (last 24 hours): Temp Pulse Resp BP Pulse Ox 98 F 89 18 137/86 99 06/03/18 11:48 06/03/18 11:00 06/03/18 11:00 06/03/18 11:00 06/03/18 11:00 Intake and Output: 06/03/18 06/03/18 06:59 18:59 Intake Total 363 Balance 363 - Medications Medications: Current Medications Heparin Sodium/Sodium Chloride (Heparin 03392 Units/250ml 1/2 Normal Saline) 25 ,000 units in 250 mls @ 19.481 mls/hr IV .[id number] PRN; Protocol PRN Reason: ADJUST RATE PER PROTOCOL Last Admin: 06/03/18 05:40 Dose: 16 units/kg/hr, 17.316 mls/hr Pantoprazole Sodium (Protonix Inj) 40 mg IVP DAILY [facility] Last Admin: 06/03/18 09:32 Dose: 40 mg - Labs Labs: 06/03/18 05:15 06/03/18 05:15 PT 11.7 SECONDS (9.4-12.5) 06/02/18 12:25 INR 1.02 06/02/18 12:25 APTT 58.6 Seconds (25.1-36.5) H 06/03/18 11:50 - Constitutional Appears: Well, Non-toxic, No Acute Distress - Head Exam Head Exam: ATRAUMATIC, NORMOCEPHALIC - Eye Exam Eye Exam: EOMI, Normal appearance, PERRL - ENT Exam ENT Exam: Mucous Membranes Moist - Respiratory Exam Respiratory Exam: Clear to Ausculation Bilateral, NORMAL BREATHING PATTERN - Cardiovascular Exam Cardiovascular Exam: REGULAR RHYTHM, RRR, +S1, +S2 - GI/Abdominal Exam GI & Abdominal Exam: Soft, Normal Bowel Sounds. absent: Tenderness - Extremities Exam Extremities Exam: Normal Inspection Additional comments: 2+ pulses BL DP - Neurological Exam Neurological Exam: Alert, Awake, Oriented x3 - Psychiatric Exam Psychiatric exam: Normal Affect, Normal Mood - Skin Skin Exam: Dry, Intact, Normal Color, Warm Assessment and Plan - Assessment and Plan (Free Text) Assessment: 38F w/ PMH HTN, Microcytic Anemia, Recent orthopedic procedure of L knee, control use, presented to [facility] ED on 06/03 w/ complaints chest pain and SOB. Subsequently found to have PE on CTA-PE Protocol; DVT on Duplex U/S Plan: Submassive PE + LLE DVT 06/02 - CTA-Chest PE Protocol : Extensive pulmonary thromboemoblism thrombi in Left upper, lower, right upper, right lower lobes. 6mm pulmonary nodule left upper lobe 06/02 BL Duplex LE : Occlusive thrombus in right mid to distal femoral and popliteal vein Hemodynamically stable overnight and this morning; C/w heparin drip at this time titrate to maintain PTT >50 as per DVT/PE protocol C/w Lipitor at this time Echocardiogram scheduled for 06/04 Cardiology Following, Appreciate rec Pulmonology Following, Appreciate reccs HTN Maintain BP >90 Hold Home Norvasc at this time Microcytic Anemia H/H stable/ HD stable Continue following H/H Monitor for s/s of HD instability On Fe infusion w/ hemeatologist outpt; may need to resume if Hb Drops PPX Heparin Drip as above; avoid SCD due to LE DVT Protonix Patient was seen, examined and discussed w/ attending physician Dr. Eryn Bowden DO PGY1 Internal Medicine [facility] - Hospital Progress Note <Eryn Bowden R - Last Filed: 06/03/18 18:00> Objective - Vital Signs/Intake and Output Vital Signs (last 24 hours): Temp Pulse Resp BP Pulse Ox 98 F 88 19 139/80 99 06/03/18 16:00 06/03/18 16:00 06/03/18 16:00 06/03/18 16:00 06/03/18 16:00 Intake and Output: 06/03/18 06/03/18 06:59 18:59 Intake Total 363 Balance 363 - Medications Medications: Current Medications Heparin Sodium/Sodium Chloride (Heparin 76317 Units/250ml 1/2 Normal Saline) 25,000 units in 250 mls @ 19.481 mls/hr IV .[id number] PRN; Protocol PRN Reason: ADJUST RATE PER PROTOCOL Last Admin: 06/03/18 05:40 Dose: 16 units/kg/hr, 17.316 mls/hr Pantoprazole Sodium (Protonix Inj) 40 mg IVP DAILY [facility] Last Admin: 06/03/18 09:32 Dose: 40 mg - Labs Labs: 06/03/18 05:15 06/03/18 05:15 PT 11.7 SECONDS (9.4-12.5) 06/02/18 12:25 INR 1.02 06/02/18 12:25 APTT 58.6 Seconds (25.1-36.5) H 06/03/18 11:50 Attending/Attestation - Attestation I have personally seen and examined this patient.: Yes I have fully participated in the care of the patient.: Yes I have reviewed all pertinent clinical information, including history, physical exam and plan: Yes Notes (Text): Patient seen and examined by me with resident at 8:20 AM on 06/03/18. Case including HPI, physical exam, and assessment and plan discussed with resident. Agree with above with following additions/corrections. Patient is a 38-year-old female past medical history significant for hypertension and anemia that presents to the emergency room with chest pressure and shortness of breath. Patient states she is feeling better today. States chest pressure has improved. Patient states she is a little better able to take in a deep breath. Patient denies any palpitations. No headaches or dizziness. No fevers or chills. No nausea, vomiting, or abdominal pain. No dysuria. Patient states right leg pain is a little better. Physical exam: General: Awake and alert lying in bed in no acute distress HEENT: Normocephalic, atraumatic. Extraocular muscles intact, pupils equal and r eactive, no scleral icterus. Oropharynx is pink and moist. No pharyngeal erythema or exudate appreciated. Neck is supple. Cardiovascular: Normal rhythm. Normal S1 and S2.No murmurs, rubs, or gallops appreciated Pulmonary: Normal respiratory effort. Decreased breath sounds. No rhonchi, rales, or wheezing appreciated. Gastrointestinal: Soft, nondistended. Nontender. Positive bowel sounds all 4 jonel drants. No guarding.Positive obese abdomen Musculoskeletal: Moves all extremities. Bilateral lower extremity calf tenderness. Bilateral lower extremity edema. Left lower extremity with Logan wrapping. Central nervous system: AAO x3, CN II through XII grossly intact. Dermatologic: Skin warm and dry. Assessment and plan: Patient is a 38-year-old female past medical history significant for hypertension and anemia that presents to the emergency room with chest pressure and shortness of breath. Patient states that she had left knee surgery for ligament tear at [facility] on 05/22/2018. 1. Extensive bilateral pulmonary emboli. S/P recent surgery and has been immobile. Also taking oral contraceptive pill. Patient advised to stop OCP. Pending 2D echo. Continue heparin drip. Troponin 0.25->0.57->0.37. D-Dimer 4194. Pulmonary following, recommendations appreciated. Cardiology following, recommendations appreciated. CTA chest per radiologist shows extensive pulmonary thromboembolus, thrombus is seen in the periphery of the left main pulmonary artery with what appears to be occlusive thrombus left lower lobe and more peripheral segmental thrombi left upper lobe, additional pulmonary embolus detected in the right lower and right upper lobes, 6 mm pulmonary nodule left up per lobe, elective follow-up recommended. Bilateral lower extremity venous dopplers per radiologist showed acute occlusive thrombus in the right mid to distal femoral vein and popliteal vein. Patient hemodynamically stable. 2. Anemia. Chronic per patient. Oniron infusions as outpatient. Pending stool for occult blood as patient is on heparin drip and will need to be anticoagulated. Continue to monitor H&H. 3. Essential hypertension. Home norvasc held for now. Monitor blood pressure and add once stabilzed or if needed. 4. GI/DVT prophylaxis. Protonix/heparin drip 5. Patient is a full code. Case was discussed in detail with the patient and office clerk regarding current diagnosis and treatment plan. All questions answered.
--- NOTE | 2018-06-03 22:48 | CON ---
DATE: 06/03/2018 CARDIOLOGY CONSULTATION REASON FOR CONSULTATION: Pulmonary embolus. HISTORY OF PRESENT ILLNESS: The patient is a 38-year-old female who underwent recently left knee surgery at [facility] on 05/22/2018, and was discharged on second day. The patient presented because of sudden onset chest pain as well as shortness of breath, and a brief period of dizziness. The patient was found to have extensive pulmonary thromboembolus on CT angio. The patient denies any prior similar history. The patient is on control pills for the past few years. SOCIAL HISTORY: The patient is a light smoker and she is occasional drinker. MEDICATIONS: The patient is on intravenous heparin regimen for pulmonary embolus. REVIEW OF SYSTEMS: The patient did report bilateral calf pain. PHYSICAL EXAMINATION GENERAL: The patient is a middle-aged female who does not appear to be in acute distress. VITAL SIGNS: Blood pressure 137/86, heart rate 89, temperature 98, respirations 18. HEENT: Pale conjunctivae. CHEST: Clear. HEART: S1 and S2 regular. EXTREMITIES: Bilateral calf tenderness. LABORATORY DATA: Hemoglobin and hematocrit 10.5 and 31.6, white count and platelet count are within normal limits. Today's SMA-7 is entirely within normal limits. Troponin 0.25, 0.57, and 0.37. The latest PTT is 58.6. Urine drug screen is negative. EKG revealed normal sinus rhythm at rate of [address]-T wave changes. Venous Doppler of the lower extremities revealed acute occlusive thrombus in the right mid to distal femoral vein and popliteal vein, and the official CT angio report extensive pulmonary thromboembolus, thrombus is seen in the periphery of the left main pulmonary artery with what appears to be occlusive thrombus in left lower lobe and more prominence thrombi in left upper lobe. Additional pulmonary embolus detected in the right lower lobe and right upper lobe. No evidence of right ventricular strain. The interventricular septum assumes a normal configuration. There is no evidence of reflux into the inferior vena cava or hepatic veins. ASSESSMENT: 1. Bilateral pulmonary embolus. 2. Right lower extremity deep vein thrombosis, however, left lower extremity deep vein thrombosis as a source of embolization could not be completely excluded. 3. Borderline troponin elevation represents a pulmonary infarct rather than a cardiac infarct. RECOMMENDATIONS: Continue current intravenous therapeutic heparin regimen. Continue IV Protonix. Obtain a bedside echocardiographic study tomorrow. May consider IVC filter in view of large thrombus burden following significant bilateral pulmonary thromboembolization. Rivera Brasher MD
[2018-06-04 06:34] LABS: HEMOGLOBIN 9.9 g/dL (12.0-16.0); MEAN CELL VOLUME 68.6 fl (80.0-105.0); MEAN CORPUSCULAR HEMOGLOBIN 22.7 pg (25.0-35.0); PLATELET COUNT 267 10^3/uL (120.0-450.0); RBC 4.37 10^6/uL (3.5-6.1); RED CELL DISTRIBUTION WIDTH 19.4 % (11.5-14.5); WHITE BLOOD COUNT 7.7 10^3/uL (4.5-11.0)
--- NOTE | 2018-06-04 06:49 | CP.CCUPN ---
<Geovani Bowden - Last Filed: 06/04/18 12:47> CCU Subjective - Physician Review Subjective (Free Text): Geovani Bowden Internal Medicine Resident- Progress Note on Behalf of Critical Care Team Subjective: Patient seen and examined at bedside. No acute events. Patient admits to cough overnight. Offers no new complaints at this time. Denies fever, chills, headache, visual/auditory changes, dizziness, chest pain, shortness of breath, abdominal pain, nausea, vomiting, diarrhea, constipation, and urinary symptoms. 12 point ROS cannot be ascertained at this time due to altered mental status Physical Examination: - Constitutional Appears: Well, No Acute Distress - Head Exam Head Exam: ATRAUMATIC, NORMAL INSPECTION, NORMOCEPHALIC - Eye Exam Eye Exam: EOMI, Normal appearance, PERRL - ENT Exam ENT Exam: Mucous Membranes Moist - Neck Exam Neck exam: Positive for: Normal Inspection - Respiratory Exam Respiratory Exam: Clear to Auscultation Bilateral, NORMAL BREATHING PATTERN - Cardiovascular Exam Cardiovascular Exam: REGULAR RHYTHM, +S1, +S2. absent: Gallop, JVD, Rubs - GI/Abdominal Exam GI & Abdominal Exam: Normal Bowel Sounds, Soft. absent: Tenderness - Neurological Exam Neurological exam: awake, alert, orientated x 3, responds to verbal stimuli, follows commands, moves extremities past midline, CNII- XII intact bilaterally, 5/5 muscle strength bilaterally, sensation intact to touch throughout - Psychiatric Exam Psychiatric exam: Normal Affect, Normal Mood - Skin Skin Exam: Dry, Intact, Normal Color, War Assessment and Plan: Patient is a 38 year old female with a past medical history of HTN, microcytic anemia, recent orthopedic procedure of L knee, control use, who was admitted for evaluation and treatment of chest pain and SOB. Patient was found to have PE on CTA-PE Protocol; DVT on Duplex U/S. Neuro - GCS [id number] Cardiovascular: - no left heart strain - troponins 0.25--0.57--0.37 - cardiology consulted- appreciate recommendations Respiratory: Pulmonary Embolism - 06/02/2018 CTA- Extensive pulmonary thromboembolism. Thrombus is seen in the periphery of the left main pulmonary artery with what appears to be occlusive thrombus left lower lobe and more peripheral segmental thrombi left upper lobe. Additional pulmonary embolism detected in right lower and right upper lobes. Pulmonary Nodule left upper lobe - 6 mm pulmonary nodule left upper lobe - outpatient follow up recommended - keep SaO2 >90% GI - continue heart healthy diet Heme LE DVT - 06/02/2018 Lower Extremity U/S- Acute occlusive thrombus in the right mid to distal femoral vein and popliteal vein - continue heparin gtt - heme/onc consulted- appreciate recommendations Anemia - normocytic - downtrending 13.9 to 12.6 DVT Ppx - no SCD, on heparin gtt Dispo: Patient is a hemodynamically stable. Transfer to telemetry floor. Patient case discussed with and plan approved by attending physician, Dr. Engle. CCU Objective - Vital Signs / Intake & Output Vital Signs (Last 4 hours): Vital Signs Temp Pulse Resp BP Pulse Ox 06/04/18 06:00 98.2 F 75 15 126/75 100 06/04/18 05:00 89 23 135/87 99 06/04/18 04:00 81 16 155/79 H 97 06/04/18 03:00 86 19 141/78 97 Intake and Output (Last 8hrs): Intake & Output 06/03/18 06/03/18 06/04/18 14:59 22:59 06:59 Intake Total 830 207 Output Total 250 250 Balance 580 -43 Intake: IV 250 207 heparin 207 Oral 580 Output: Urine 250 250 Urine, Voided 250 250 Other: # Voids Urine, Voided 2 # Bowel Movements 0 - Physical Exam Head: Positive for: Atraumatic, Normocephalic Pupils: Positive for: PERRL Extroacular Muscles: Positive for: EOMI Conjunctiva: Positive for: Normal Respiratory/Chest: Positive for: Clear to Auscultation, Good Air Exchange. Negative for: Respiratory Distress, Accessory Muscle Use Cardiovascular: Positive for: Regular Rate and Rhythm, Normal S1, S2. Negative for: Murmurs Abdomen: Negative for: Tenderness, Distention, Peritoneal Signs Back: Positive for: Normal Inspection Upper Extremity: Positive for: Normal Inspection. Negative for: Cyanosis, Edema Lower Extremity: Positive for: Normal Inspection. Negative for: Edema Neurological: Positive for: GCS=15, CN II-XII Intact, Speech Normal Skin: Positive for: Warm, Dry, Normal Color. Negative for: Rashes Psychiatric: Positive for: Alert, Oriented x 3, Normal Insight, Normal Concentration - Medications Active Medications: Active Medications Generic Name Dose Route Start Last Admin Trade Name Freq PRN Reason Stop Dose Admin Heparin Sodium/Sodium Chloride 25,000 units in 250 mls @ 19.481 mls/hr 06/02/18 16:11 06/03/18 19:39 Heparin 41896 Units/250ml 1/2 Normal Saline IV 16 units/kg/hr .[id number] PRN 17.316 mls/hr ADJUST RATE PER PROTOCOL Administration Protocol 18 UNITS/KG/HR Pantoprazole Sodium 40 mg 06/03/18 10:00 06/03/18 09:32 Protonix Inj IVP 40 mg DAILY RICHARD Administration - Patient Studies Lab Studies: Lab Studies 06/04/18 06/03/18 06/03/18 Range/Units 05:30 17:50 11:50 APTT 76.5 H 68.6 H 58.6 H (25.1-36.5) Seconds Laboratory Results - last 24 hr 06/03/18 06/03/18 06/04/18 11:50 17:50 05:30 APTT 58.6 H 68.6 H 76.5 H Critical Care Progress Note - Nutrition Nutrition: Nutrition Category Date Time Status Heart Healthy Diet [DIET] Diets 06/03/18 Breakfast Active <Jai Engle - Last Filed: 06/04/18 13:01> CCU Objective - Vital Signs / Intake & Output Intake and Output (Last 8hrs): Intake & Output 06/03/18 06/04/18 06/04/18 22:59 06:59 14:59 Intake Total 830 207 250 Output Total 250 250 Balance 580 -43 250 Intake: IV 250 207 250 heparin 207 Oral 580 Output: Urine 250 250 Urine, Voided 250 250 Other: # Voids Urine, Voided 2 # Bowel Movements 0 - Medications Active Medications: Active Medications Generic Name Dose Route Start Last Admin Trade Name Freq PRN Reason Stop Dose Admin Heparin Sodium/Sodium Chloride 25,000 units in 250 mls @ 19.481 mls/hr 06/02/18 16:11 06/04/18 12:33 Heparin 57376 Units/250ml 1/2 Normal Saline IV 16 units/kg/hr .[id number] PRN 17.316 mls/hr ADJUST RATE PER PROTOCOL Administration Protocol 18 UNITS/KG/HR Pantoprazole Sodium 40 mg 06/03/18 10:00 12/24/18 09:49 Protonix Inj IVP 40 mg DAILY RICHARD Administration - Patient Studies Lab Studies: Microbiology Studies 06/02/18 21:09 MRSA Culture (Admit) - Final Naris MRSA NOT DETECTED Lab Studies 06/04/18 06/04/18 06/04/18 Range/Units 08:50 05:30 05:30 WBC (4.5-11.0) 10^3/uL RBC (3.5-6.1) 10^6/uL Hgb (12.0-16.0) g/dL Hct (36.0-48.0) % MCV (80.0-105.0) fl MCH (25.0-35.0) pg MCHC (31.0-37.0) g/dl RDW (11.5-14.5) % Plt Count (120.0-450.0) 10^3/uL APTT 76.5 H (25.1-36.5) Seconds Sodium 137 (132-148) mmol/L Potassium 4.3 (3.6-5.0) mmol/L Chloride 109 H (98-107) mmol/L Carbon Dioxide 24 (21-33) mmol/L Anion Gap 8 L (10-20) BUN 19 (7-21) mg/dL Creatinine 0.9 (0.7-1.2) mg/dl Est GFR ( Amer) > 60 Est GFR (Non-Af Amer) > 60 Random Glucose 103 (70-110) mg/dL Calcium 9.1 (8.4-10.5) mg/dL Iron 36 L (45-180) ug/dL TIBC 371 (265-497) ug/dL % Saturation 10 L (20-55) % Total Bilirubin 0.3 (0.2-1.3) mg/dL AST 21 (14-36) U/L ALT 13 (7-56) U/L Alkaline Phosphatase 54 (38-126) U/L Total Protein 7.7 (5.8-8.3) g/dL Albumin 3.7 (3.0-4.8) g/dL Globulin 4.0 gm/dL Albumin/Globulin Ratio 0.9 L (1.1-1.8) 06/04/18 06/03/18 Range/Units 05:30 17:50 WBC 7.7 (4.5-11.0) 10^3/uL RBC 4.37 (3.5-6.1) 10^6/uL Hgb 9.9 L (12.0-16.0) g/dL Hct 30.0 L (36.0-48.0) % MCV 68.6 L (80.0-105.0) fl MCH 22.7 L (25.0-35.0) pg MCHC 33.0 (31.0-37.0) g/dl RDW 19.4 H (11.5-14.5) % Plt Count 267 (120.0-450.0) 10^3/uL APTT 68.6 H (25.1-36.5) Seconds Sodium (132-148) mmol/L Potassium (3.6-5.0) mmol/L Chloride (98-107) mmol/L Carbon Dioxide (21-33) mmol/L Anion Gap (10-20) BUN (7-21) mg/dL Creatinine (0.7-1.2) mg/dl Est GFR ( Amer) Est GFR (Non-Af Amer) Random Glucose (70-110) mg/dL Calcium (8.4-10.5) mg/dL Iron (45-180) ug/dL TIBC (265-497) ug/dL % Saturation (20-55) % Total Bilirubin (0.2-1.3) mg/dL AST (14-36) U/L ALT (7-56) U/L Alkaline Phosphatase (38-126) U/L Total Protein (5.8-8.3) g/dL Albumin (3.0-4.8) g/dL Globulin gm/dL Albumin/Globulin Ratio (1.1-1.8) Laboratory Results - last 24 hr 06/03/18 06/04/18 06/04/18 17:50 05:30 05:30 WBC 7.7 RBC 4.37 Hgb 9.9 L Hct 30.0 L MCV 68.6 L MCH 22.7 L MCHC 33.0 RDW 19.4 H Plt Count 267 APTT 68.6 H Sodium 137 Potassium 4.3 Chloride 109 H Carbon Dioxide 24 Anion Gap 8 L BUN 19 Creatinine 0.9 Est GFR ( Amer) > 60 Est GFR (Non-Af Amer) > 60 Random Glucose 103 Calcium 9.1 Iron TIBC % Saturation Total Bilirubin 0.3 AST 21 ALT 13 Alkaline Phosphatase 54 Total Protein 7.7 Albumin 3.7 Globulin 4.0 Albumin/Globulin Ratio 0.9 L 06/04/18 06/04/18 05:30 08:50 WBC RBC Hgb Hct MCV MCH MCHC RDW Plt Count APTT 76.5 H Sodium Potassium Chloride Carbon Dioxide Anion Gap BUN Creatinine Est GFR ( Amer) Est GFR (Non-Af Amer) Random Glucose Calcium Iron 36 L TIBC 371 % Saturation 10 L Total Bilirubin AST ALT Alkaline Phosphatase Total Protein Albumin Globulin Albumin/Globulin Ratio Critical Care Progress Note - Nutrition Nutrition: Nutrition Category Date Time Status Heart Healthy Diet [DIET] Diets 06/03/18 Breakfast Active Assessment/Plan - Assessment and Plan (Free Text) Assessment: Patient seen and examined on rounds, with resident, agree with note with following additions/exceptions: Patient is 38 year old female with a past medical history of HTN, microcytic anemia, recent orthopedic procedure of L knee, control use, who was admitted for for chest pain and SOB., found to have PE and DVT on Duplex U/S. Started on heparin dirp, with therapeutic PTTs ECHO done this morning, results noted Currently afebrile, BP stable, comfortable in NAD, on room air, saturation 99%, denies CP, SOB PE DVT Anemia Hx of OCP use Recent knee surgery Recommend: - Supp o2 as needed, duonebs PRN - NO ID issues - BP control - Heparin drip, monitor PTT, would transition to NOAC - follow up cardiology, heme - GI ppx - DVT ppx, Heparin gtt - Stable, transfer to telemetry
[2018-06-04 06:59] LABS: ALB/GLOB RATIO 0.9 (1.1-1.8); ALBUMIN 3.7 g/dL (3.0-4.8); ALT/SGPT 13 U/L (7-56); AST/SGOT 21 U/L (14-36); BLOOD UREA NITROGEN 19 mg/dL (7-21); CALCIUM 9.1 mg/dL (8.4-10.5); GFR NON-AFRICAN AMERICAN > 60
--- NOTE | 2018-06-04 08:38 | CP.PCM.PN ---
<Brandon Bowden - Last Filed: 06/04/18 13:43> Subjective - Date & Time of Evaluation Date of Evaluation: 06/04/18 Time of Evaluation: 08:34 - Subjective Subjective: Brandon Randhawael DO PGY1 Internal medicine [employer] - Medicine Progress Note Seen and examined at bedside this morning. Complaining of chest pain associated w/ coughing. Denies SOB this AM. Reports she is eating well however has not had a BM since SAT AM. Denies abd pain n/v/d/c. Reports her LLE and RLE pain are improving at this time. As per discussion w/ patient, it was noted that she follows up w/ Dr. Colon as her heme-onc outpatient; She expressed that she would like to continue following w/ Dr. Colon. Dr. Nevarez was initially consulted. Medicine team reached out to Dr. Nevarez to clarify error and transfer care to Dr. Colon. Consult was communicated to Dr. Colon's group (Dr. Sanches). Objective - Vital Signs/Intake and Output Vital Signs (last 24 hours): Temp Pulse Resp BP Pulse Ox 98.2 F 75 15 126/75 100 06/04/18 06:00 06/04/18 06:00 06/04/18 06:00 06/04/18 06:00 06/04/18 06:00 Intake and Output: 06/04/18 06/04/18 06:59 18:59 Intake Total 457 Output Total 250 Balance 207 - Medications Medications: Current Medications Heparin Sodium/Sodium Chloride (Heparin 24141 Units/250ml 1/2 Normal Saline) 25,000 units in 250 mls @ 19.481 mls/hr IV .[id number] PRN; Protocol PRN Reason: ADJUST RATE PER PROTOCOL Last Admin: 06/03/18 19:39 Dose: 16 units/kg/hr, 17.316 mls/hr Pantoprazole Sodium (Protonix Inj) 40 mg IVP DAILY [facility] Last Admin: 06/03/18 09:32 Dose: 40 mg - Labs Labs: 06/04/18 05:30 06/04/18 05:30 PT 11.7 SECONDS (9.4-12.5) 06/02/18 12:25 INR 1.02 06/02/18 12:25 APTT 76.5 Seconds (25.1-36.5) H 06/04/18 05:30 - Constitutional Appears: Well, Non-toxic, No Acute Distress - Head Exam Head Exam: ATRAUMATIC, NORMOCEPHALIC - Eye Exam Eye Exam: EOMI, Normal appearance, PERRL - ENT Exam ENT Exam: Mucous Membranes Moist - Respiratory Exam Respiratory Exam: Clear to Ausculation Bilateral, NORMAL BREATHING PATTERN - Cardiovascular Exam Cardiovascular Exam: REGULAR RHYTHM, RRR, +S1, +S2 - GI/Abdominal Exam GI & Abdominal Exam: Soft, Normal Bowel Sounds. absent: Tenderness - Extremities Exam Extremities Exam: Normal Inspection Additional comments: 2+ pulses BL DP - Neurological Exam Neurological Exam: Alert, Awake, Oriented x3 - Psychiatric Exam Psychiatric exam: Normal Affect, Normal Mood - Skin Skin Exam: Dry, Intact, Normal Color, Warm Assessment and Plan - Assessment and Plan (Free Text) Assessment: 38F w/ PMH HTN, Microcytic Anemia, Recent orthopedic procedure of L knee, control use, presented to [facility] ED on 06/03 w/ complaints chest pain and SOB. Subsequently found to have PE on CTA-PE Protocol; DVT on Duplex U/S. She has remained hemodynamically stable at this time. Plan: Submassive PE + LLE DVT 06/02 - CTA-Chest PE Protocol : Extensive pulmonary thromboemoblism thrombi in Left upper, lower, right upper, right lower lobes. 6mm pulmonary nodule left upper lobe 06/02 BL Duplex LE : Occlusive thrombus in right mid to distal femoral and popliteal vein Continues to show hemodynamic stability C/w heparin drip at this time titrate to maintain PTT >50 as per DVT/PE protocol; Patient is approved for xarelto as per her insurance/ pharmacy As per conversation w/ cardiology patient may benefit from IVC filter as inciting clot may have embolized from LLE w/ Clot burden in RLE present Echocardiogram shows no cardiac abnormality at this time C/w Lipitor at this time Heme-Onc Dr. Colon Consulted, Appreciate [facility] Cardiology Following, Appreciate [facility] Pulmonology Following, Appreciate [facility] HTN Maintain BP >90 Hold Home Norvasc at this time Microcytic Anemia H/H stable/ HD stable Continue following H/H Monitor for s/s of HD instability On Fe infusion w/ hemeatologist outpt; may need to resume if Hb Drops PPX Heparin Drip as above; avoid SCD due to LE DVT Protonix Patient was seen, examined and discussed w/ attending physician Dr. pAril Bowden DO PGY1 Internal Medicine [employer] - Hospital Progress Note <Rachelle Chen - Last Filed: 06/06/18 16:56> Objective - Vital Signs/Intake and Output Vital Signs (last 24 hours): Temp Pulse Resp BP Pulse Ox 98.6 F 86 20 121/69 100 06/06/18 06:00 06/06/18 12:00 06/06/18 12:00 06/06/18 12:00 06/06/18 06:00 Intake and Output: 06/06/18 06/06/18 06:59 18:59 Intake Total 1758 Output Total 4 Balance 1754 - Labs Labs: 06/06/18 07:00 06/06/18 07:00 PT 11.7 SECONDS (9.4-12.5) 06/02/18 12:25 INR 1.02 06/02/18 12:25 APTT 41.5 Seconds (25.1-36.5) H 06/06/18 13:05 Attending/Attestation - Attestation I have personally seen and examined this patient.: Yes I have fully participated in the care of the patient.: Yes I have reviewed all pertinent clinical information, including history, physical exam and plan: Yes Notes (Text): 06/06/18 16:51 Attending note; Patient seen and examined with resident in ICU. Patient is alert and awake. On oxygen nasal cannula. Tachycardia is resolving. Denies any chest pain. Sitting in bed. Patient is a 38-year-old female past medical history significant for hypertension and anemia that presents to the emergency room with chest pressure and shortness of breath. Patient states that she had left knee surgery for ligament tear at [facility] on 05/22/2018. 1. Extensive bilateral pulmonary emboli. Tachycardia is resolving .hypoxia is improving .continue oxygen nasal cannula . Continue IV heparin drip . S/P recent surgery in the left knee and has been immobile. Also taking oral co ntraceptive pill. Currently off oral contraception pills. Cardiology evaluation appreciated. CTA chest shows extensive pulmonary thromboembolus, thrombus is seen in the periphery of the left main pulmonary artery with what appears to be occlusive thrombus left lower lobe and more peripheral segmental thrombi left upper lobe, additional pulmonary embolus detected in the right lower and right upper lobes, 6 mm pulmonary nodule left upper lobe, elective follow-up recommended. Bilateral lower extremity venous dopplers per radiologist showed acute occlusive thrombus in the right mid to distal femoral vein and popliteal vein. Case discussed with interventional radiologist. IVC filter is not recommended at this point. Advised to continue oral anticoagulant and and monitor. 2. Anemia. Chronic and due to irregular periods.. On iron infusions as outpatient. Oncology evaluation appreciated. Patient stated that she follows up with for IV iron infusion therapy. GI prophylaxis with Protonix . Out of bed to chair as tolerated . Diagnosis, follow-up plan discussed with patient in detail . Upon discharge patient will follow-up with PMD Dr. Pavon.
--- NOTE | 2018-06-04 10:14 | PN ---
DATE: 06/04/2018 A 38-year-old woman with pulmonary embolism following her arthroscopy procedure. The patient is being treated for pulmonary emboli. 1. Hematologically, the patient has hemoglobin of initially 10.9, now 9.9, with MCV of 68. I am going to order iron studies to rule out iron deficiency anemia here. If they come back negative, I will then do hemoglobin electrophoresis to rule out thalassemia. 2. The patient has extensive pulmonary embolism, and so I have ordered various tests to rule out any underlying cause of the situation which includes antithrombin III, factor V, prothrombin gene analysis, lupus anticoagulant, and phospholipid antibody, rule out and protein S and protein C deficiency; but either way, whatever these things show, the patient will need anticoagulation for the next 9 to 12 months. At present, she is still in the ICU with initial treatment. Natanael Nevarez MD
[2018-06-04 11:02] LABS: IRON 36 ug/dL (45-180)
[2018-06-04 11:03] LABS: % IRON SATURATION 10 % (20-55); TOTAL IRON BINDING CAPACITY 371 ug/dL (265-497)
[2018-06-04] MEDS: Heparin 25,000units in 1/2NS /250 ML BAG IV PRN (12:33)
--- NOTE | 2018-06-04 12:50 | CARD ---
APPROVED REPORT Date of service: 06/04/2018 EXAM: Two-dimensional and M-mode echocardiogram with Doppler and color Doppler. INDICATION PE 2D DIMENSIONS IVSd1.4 (0.7-1.1cm)LVDd4.8 (3.9-5.9cm) PWd1.4 (0.7-1.1cm)LVDs3.4 (2.5-4.0cm) FS (%) 29.9 %LVEF (%)57.0 (>50%) M-Mode DIMENSIONS Left Atrium (MM)3.50 (2.5-4.0cm)Aortic Root3.30 (2.2-3.7cm) Aortic Cusp Exc.2.30 (1.5-2.0cm) Aortic Valve AoV Peak Xlslpigz460.0cm/Adam Peak GR.7mmHg Mitral Valve MV E Giqpvznb72.5cm/sMV A Ctduhzpv35.8cm/sE/A ratio1.3 TDI Lateral E' Peak V17.30cm/sMedial E' Peak V12.50cm/sE/Lateral E'4.5 E/Medial E'6.2 Tricuspid Valve TR Peak [id number]/sRAP [id number] Peak Gr.23mmHg [id number] LEFT VENTRICLE The left ventricle is normal size. There is normal left ventricular wall thickness. The left ventricular function is normal. The left ventricular ejection fraction is within the normal range. There is normal LV segmental wall motion. The left ventricular diastolic function is normal. RIGHT VENTRICLE The right ventricle is borderline dilated. There is normal right ventricular wall thickness. Systolic function is borderline reduced. ATRIA The left atrium size is normal. The right atrium size is normal. AORTIC VALVE The aortic valve is normal in structure. No aortic regurgitation is present. There is no aortic valvular stenosis. MITRAL VALVE The mitral valve is normal in structure. There is no mitral valve regurgitation noted. There is no mitral valve stenosis. TRICUSPID VALVE The tricuspid valve is normal in structure. There is trace to mild tricuspid regurgitation. PULMONIC VALVE The pulmonary valve is normal in structure. There is trace to mild pulmonic valvular regurgitation. GREAT VESSELS The aortic root is normal in size. The IVC is dilated. PERICARDIAL EFFUSION There is no pericardial effusion. <Conclusion> The right ventricle is borderline dilated.Its Systolic function is borderline reduced. There is trace to mild pulmonic valvular regurgitation. There is trace to mild tricuspid regurgitation.
[2018-06-04] MEDS: Heparin25000 units/250ml 1/2NS 25,000 UNITS/250 ML BAG IV PRN (16:53)
--- NOTE | 2018-06-04 18:38 | PN ---
DATE: 06/04/2018 SUBJECTIVE: The patient is comfortable. She denies any chest pain. No shortness of breath at this time. PHYSICAL EXAMINATION VITAL SIGNS: Blood pressure 129/ , heart rate 62, respirations 19, and temperature 98.2. HEENT: Normocephalic. CHEST: Clear. HEART: S1 and S2 regular. EXTREMITIES: No pedal edema. LABORATORY DATA: Today's SMA-7 is within normal limits except for chloride of 109 and anion gap of 8. Today's hemoglobin and hematocrit are 9.1 and 30, white count and platelet count are within normal limits. Echocardiographic study revealed borderline dilated right ventricle with borderline reduced right ventricular systolic function. Official report of venous Doppler, acute occlusive thrombus in the right to mid distal femoral vein and popliteal vein. ASSESSMENT: 1. Bilateral pulmonary embolus. 2. Acute occlusive right femoral and popliteal vein deep venous thrombosis. RECOMMENDATIONS: Continue current IV heparin. The case was discussed with the medical device sales representative. The option of IVC filter is justified in case if the presumption that the pulmonary embolus was embolization from left lower extremity DVT in the presence of a large thrombus present in the right femoral and popliteal veins. The patient was strongly advised to abstain from future control pills. Rivera Brasher MD
[2018-06-05] MEDS: Heparin25000 units/250ml 1/2NS 25,000 UNITS/250 ML BAG IV PRN ×2 (05:20→21:57)
[2018-06-05 07:32] LABS: HEMOGLOBIN 9.7 g/dL (12.0-16.0); MEAN CELL VOLUME 68.8 fl (80.0-105.0); MEAN CORPUSCULAR HEMOGLOBIN 22.8 pg (25.0-35.0); MEAN CORPUSCULAR HGB CONC 33.1 g/dl (31.0-37.0); PLATELET COUNT 249 10^3/uL (120.0-450.0); RBC 4.26 10^6/uL (3.5-6.1); RED CELL DISTRIBUTION WIDTH 19.2 % (11.5-14.5); WHITE BLOOD COUNT 7.8 10^3/uL (4.5-11.0)
[2018-06-05 07:56] LABS: ALB/GLOB RATIO 0.9 (1.1-1.8); ALBUMIN 3.6 g/dL (3.0-4.8); ALT/SGPT 20 U/L (7-56); AST/SGOT 20 U/L (14-36); BLOOD UREA NITROGEN 16 mg/dL (7-21); CALCIUM 9.2 mg/dL (8.4-10.5); GFR NON-AFRICAN AMERICAN > 60
--- NOTE | 2018-06-05 09:27 | CP.PCM.PN ---
<Brandon Bowden - Last Filed: 06/05/18 15:56> Subjective - Date & Time of Evaluation Date of Evaluation: 06/05/18 Time of Evaluation: 14:59 - Subjective Subjective: Brandon Bowden DO PGY1 - Internal Medicine [employer] - Medicine Progress Note Patient was seen and examined at bedside this morning. Overnight patient began complaining of vaginal spotting. Throughout day she had worsening of vaginal bleed. OBGYN consulted, recommended no further intervention at this time; No need for TVUS. Continue to monitor H/H Pt. only c/o cramping and N/V today. No CP, SOB, Diarrhea/Constipation. RLE / LLE pain improved at this time. Objective - Vital Signs/Intake and Output Vital Signs (last 24 hours): Temp Pulse Resp BP Pulse Ox 98.2 F 69 20 120/85 97 06/05/18 06:00 06/05/18 06:00 06/05/18 06:00 06/05/18 06:00 06/05/18 06:00 Intake and Output: 06/05/18 06/05/18 06:59 18:59 Intake Total 818 0 Balance 818 0 - Medications Medications: Current Medications Apixaban (Eliquis) 5 mg PO BID RICHARD; Protocol Heparin Sodium/Sodium Chloride (Heparin 72787 Units/250ml 1/2 Normal Saline) 25,000 units in 250 mls @ 17.273 mls/hr IV .[id number] PRN; Protocol PRN Reason: ADJUST RATE PER PROTOCOL Last Titration: 06/05/18 08:28 Dose: 18 units/kg/hr, 19.432 mls/hr Pantoprazole Sodium (Protonix Inj) 40 mg IVP DAILY [facility] Last Admin: 06/05/18 09:07 Dose: 40 mg - Labs Labs: 06/05/18 07:20 06/05/18 07:20 PT 11.7 SECONDS (9.4-12.5) 06/02/18 12: INR 1.02 06/02/18 12:25 APTT 47.2 Seconds (25.1-36.5) H 06/05/18 07:20 - Constitutional Appears: Well, Non-toxic, No Acute Distress - Head Exam Head Exam: ATRAUMATIC, NORMOCEPHALIC - Eye Exam Eye Exam: EOMI, Normal appearance, PERRL - ENT Exam ENT Exam: Mucous Membranes Moist - Respiratory Exam Respiratory Exam: Clear to Ausculation Bilateral, NORMAL BREATHING PATTERN - Cardiovascular Exam Cardiovascular Exam: REGULAR RHYTHM, RRR, +S1, +S2 - GI/Abdominal Exam GI & Abdominal Exam: Soft, Normal Bowel Sounds. absent: Tenderness - Extremities Exam Extremities Exam: Normal Inspection Additional comments: 2+ pulses BL DP - Neurological Exam Neurological Exam: Alert, Awake, Oriented x3 - Psychiatric Exam Psychiatric exam: Normal Affect, Normal Mood - Skin Skin Exam: Dry, Intact, Normal Color, Warm Assessment and Plan - Assessment and Plan (Free Text) Assessment: 38F w/ PMH HTN, Microcytic Anemia, Recent orthopedic procedure of L knee, control use, presented to [facility] on 06/03 w/ complaints chest pain and SOB. Subsequently found to have PE on CTA-PE Protocol; DVT on Duplex U/S. She has remained hemodynamically stable at this time. Plan: Submassive PE + LLE DVT 06/02 - CTA-Chest PE Protocol : Extensive pulmonary thromboemoblism thrombi in Left upper, lower, right upper, right lower lobes. 6mm pulmonary nodule left upper lobe 06/02 BL Duplex LE : Occlusive thrombus in right mid to distal femoral and popliteal vein Continues to show hemodynamic stability C/w heparin drip at this time titrate to maintain PTT >50 as per DVT/PE protocol; Patient is approved for xarelto as per her insurance/ pharmacy As per conversation w/ cardiology patient may benefit from IVC filter as inciting clot may have embolized from LLE w/ Clot burden in RLE present Will hold eliquis at this time given new onset vaginal bleeding Echocardiogram shows no cardiac abnormality at this time C/w Lipitor at this time Heme-Onc Dr. Colon Consulted, Appreciate [facility] Cardiology Following, Appreciate [facility] Pulmonology Following, Appreciate reccs New Onset Vaginal Bleeding Likely 2/2 withdrawal of OCP As per conversation w/ OBGYN bleeding to be expected w/ hormonal withdrawal H/H Stable ; HD stable Will type and cross in morning if Hb further drops H/H Q6H Continue monitoring OBGYN Consulted, appreciate [facility] HTN Maintain BP >90 Hold Home Norvasc at this time Microcytic Anemia H/H stable/ HD stable Continue following H/H Monitor for s/s of HD instability On Fe infusion w/ hemeatologist outpt; may need to resume if Hb Drops PPX Heparin Drip as above; avoid SCD due to LE DVT Protonix Patient was seen, examined and discussed w/ attending physician Dr. April Bowden DO PGY1 Internal Medicine [employer] - Hospital Progress Note <Rachelle Chen - Last Filed: 06/06/18 16:58> Objective - Vital Signs/Intake and Output Vital Signs (last 24 hours): Temp Pulse Resp BP Pulse Ox 98.6 F 86 20 121/69 100 06/06/18 06:00 06/06/18 12:00 06/06/18 12:00 06/06/18 12:00 06/06/18 06:00 Intake and Output: 06/06/18 06/06/18 06:59 18:59 Intake Total 1758 Output Total 4 Balance 1754 - Labs Labs: 06/06/18 07:00 06/06/18 07:00 PT 11.7 SECONDS (9.4-12.5) 06/02/18 12:25 INR 1.02 06/02/18 12:25 APTT 41.5 Seconds (25.1-36.5) H 06/06/18 13:05 Attending/Attestation - Attestation I have personally seen and examined this patient.: Yes I have fully participated in the care of the patient.: Yes I have reviewed all pertinent clinical information, including history, physical exam and plan: Yes Notes (Text): 06/06/18 16:56 Attending note; Patient seen and examined with resident. Patient is alert and awake. On oxygen nasal cannula. Tachycardia is resolving. Denies any chest pain. Patient had minimal vaginal bleeding. Monitor closely. Patient is a 38-year-old female past medical history significant for hypertension and anemia that presents to the emergency room with chest pressure and shortness of breath. Patient states that she had left knee surgery for ligam ent tear at [facility] on 05/22/2018. 1. Extensive bilateral pulmonary emboli. Tachycardia is resolving .hypoxia is improving .continue oxygen nasal cannula . Continue IV heparin drip . S/P recent surgery in the left knee and has been immobile. Also taking oral contraceptive pill. Currently off oral contraception pills. Cardiology evaluation appreciated. CTA chest shows extensive pulmonary thromboembolus, thrombus is seen in the periphery of the left main pulmonary artery with what appears to be occlusive thrombus left lower lobe and more peripheral segmental thrombi left upper lobe, additional pulmonary embolus detected in the right lower and right upper lobes, 6 mm pulmonary nodule left upper lobe, elective follow-up recommended. Bilateral lower extremity venous dopplers per radiologist showed acute occlusive thrombus in the right mid to distal femoral vein and popliteal vein. Case discussed with interventional radiologist. IVC filter is not recommended at this point. Advised to continue oral anticoagulant and and monitor. 2. Anemia. Chronic and due to irregular periods.. On iron infusions as outpatient. Oncology evaluation appreciated. Patient stated that she follows up with for IV iron infusion therapy. 3. Vaginal bleeding; monitor hemoglobin closely. IV iron given. Transvaginal ultrasound ordered. Case discussed with MASH GRINDER in detail. We will start Eliquis for PE tomorrow if hemoglobin is stable Out of bed to chair as tolerated . Diagnosis, follow-up plan discussed with patient in detail . Upon discharge patient will follow-up with PMD Dr. Pavon.
[2018-06-05] MEDS: Morphine 2 mg/ml ISec IVP PRN ×2 (16:07→20:11)
[2018-06-05 17:25] LABS: BASO # 0.02 K/mm3 (0.0-2.0); BASO % 0.2 % (0.0-3.0); EOS # 0.1 (0.0-0.7); EOS % 0.6 % (1.5-5.0); GRAN # 10.94 (1.4-6.5); GRAN % 86.1 % (50.0-68.0); HEMOGLOBIN 9.6 g/dL (12.0-16.0); LYMPH # 1.5 (1.2-3.4); LYMPH % 11.5 % (22.0-35.0); MEAN CELL VOLUME 68.2 fl (80.0-105.0); MEAN CORPUSCULAR HEMOGLOBIN 22.6 pg (25.0-35.0); MEAN CORPUSCULAR HGB CONC 33.2 g/dl (31.0-37.0); MONO # 0.2 (0.1-0.6); MONO % 1.6 % (1.0-6.0); PLATELET COUNT 274 10^3/uL (120.0-450.0); RBC 4.24 10^6/uL (3.5-6.1); RED CELL DISTRIBUTION WIDTH 19.2 % (11.5-14.5); WHITE BLOOD COUNT 12.7 10^3/uL (4.5-11.0)
[2018-06-06] MEDS: Morphine 2 mg/ml ISec IVP PRN ×3 (00:15→10:09)
[2018-06-06] MEDS ORDERED: Pantoprazole 40 mg EC Tab PO SCH (06:00)
[2018-06-06 06:54] VITALS: TEMP 98.6; O2SAT 100
[2018-06-06 07:30] LABS: BASO # 0.03 K/mm3 (0.0-2.0); BASO % 0.3 % (0.0-3.0); EOS # 0.2 (0.0-0.7); GRAN # 5.18 (1.4-6.5); GRAN % 58.5 % (50.0-68.0); HEMOGLOBIN 8.8 g/dL (12.0-16.0); LYMPH % 33.3 % (22.0-35.0); MEAN CELL VOLUME 68.6 fl (80.0-105.0); MEAN CORPUSCULAR HGB CONC 33.6 g/dl (31.0-37.0); MONO # 0.5 (0.1-0.6); MONO % 5.9 % (1.0-6.0); RBC 3.82 10^6/uL (3.5-6.1); RED CELL DISTRIBUTION WIDTH 19.2 % (11.5-14.5); WHITE BLOOD COUNT 8.9 10^3/uL (4.5-11.0)
[2018-06-06 07:53] LABS: ALBUMIN 3.7 g/dL (3.0-4.8); ALT/SGPT 18 U/L (7-56); AST/SGOT 22 U/L (14-36); BLOOD UREA NITROGEN 11 mg/dL (7-21); CALCIUM 9.3 mg/dL (8.4-10.5); GFR NON-AFRICAN AMERICAN > 60
--- NOTE | 2018-06-06 09:55 | US ---
Date of service: 06/06/2018 HISTORY: Vaginal Bleeding COMPARISON: None available. TECHNIQUE: Transabdominal and transvaginal pelvic ultrasound was performed with longitudinal and transverse images submitted for interpretation. FINDINGS: UTERUS: Measures 15.1 x 6.8 x 9.4 cm. Uterus is anteverted and enlarged with heterogeneous echotexture throughout the myometrium. Multiple uterine fibroids are identified. A posterior fundal hypoechoic fibroid appears subserosal and intramural measuring 3.6 x 3.2 x 3.6 cm. Anterior left fundal fibroid is exophytic appearing hypoechoic and measuring 2.2 x 2.4 x 3.2 cm. A left lateral mid fundal fibroid is heterogeneous in echotexture and moderately exophytic at the mid fundus laterally measuring 3.3 x 4.3 x 4.0 cm. Both of these appear subserosal. Finally, a small hypoechoic pedunculated fibroid extends lateral off the mid left fundus measure 1.9 x 1.4 x 1.6 cm. ENDOMETRIUM: Measures 6.4 mm in diameter. Unremarkable. CERVIX: No cervical abnormality identified. RIGHT OVARY: Measures 3.1 x 2.5 x 4.0 cm. No solid mass. Normal flow. LEFT OVARY: Measures 3.4 x 2.0 x 3.4 cm. No solid mass. Normal flow. FREE FLUID: No significant free fluid noted. OTHER FINDINGS: None. IMPRESSION: Mildly enlarged fibroid uterus with 4 defined fibroids related to the uterine fundus as discussed above, mostly left-sided. The endometrium, cervix and bilateral adnexal compartments appear unremarkable otherwise.
[2018-06-06] MEDS ORDERED: Heparin25000 units/250ml 1/2NS 25,000 UNITS/250 ML BAG IV PRN (10:06)
[2018-06-06 12:44] VITALS: BP 121/69; PULSE 86; RESP 20
--- NOTE | 2018-06-06 13:16 | CP.PCM.DIS ---
<Brandon Bowden - Last Filed: 06/06/18 16:10> Provider - Provider Date of Admission: 06/02/18 15:33 Attending physician: Rachelle Chen MD Primary care physician: Claudia Patel MD Consults: 06/02/18 15:44 Cardiology Consult Stat Comment: Consulting Provider: Rivera Brasher Consulting Physician: Rivera Brasher Reason for Consult: Extensive PE Physician Consult Stat Comment: Consulting Provider: Leandro Cao Consulting Physician: Leandro Cao Reason for Consult: Extensive PE Pulmonology Consult Stat Comment: Consulting Provider: Leandro Cao Consulting Physician: Leandro Cao Reason for Consult: Extensive PE 06/04/18 12:27 Hematology Oncology Consult Routine Comment: Consulting Provider: Florentino Colon Consulting Physician: Florentino Colon Reason for Consult: DVT/ PE 06/05/18 14:13 Physician Consult Routine Comment: Consulting Provider: Alfa Romo Consulting Physician: Alfa Romo Reason for Consult: Menorrhagia Time Spent in preparation of Discharge (in minutes): 45 Diagnosis - Discharge Diagnosis (1) Pulmonary embolism Status: Acute (2) DVT (deep venous thrombosis) Status: Acute (3) Menorrhagia Status: Acute (4) HTN (hypertension) Status: Acute Hospital Course - Lab Results Lab Results: Micro Results 06/02/18 21:09 Naris MRSA Culture (Admit) - Final MRSA NOT DETECTED Most Recent Lab Values WBC 8.9 10^3/uL (4.5-11.0) D 06/06/18 07:00 RBC 3.82 10^6/uL (3.5-6.1) 06/06/18 07:00 Hgb 8.8 g/dL (12.0-16.0) L 06/06/18 07:00 Hct 26.2 % (36.0-48.0) L 06/06/18 07:00 MCV 68.6 fl (80.0-105.0) L 06/06/18 07:00 MCH 23.0 pg (25.0-35.0) L 06/06/18 07:00 MCHC 33.6 g/dl (31.0-37.0) 06/06/18 07:00 RDW 19.2 % (11.5-14.5) H 06/06/18 07:00 Plt Count 262 10^3/uL (120.0-450.0) 06/06/18 07:00 MPV fl (7.0-11.0) 06/06/18 07:00 Gran % 58.5 % (50.0-68.0) 06/06/18 07:00 Lymph % (Auto) 33.3 % (22.0-35.0) 06/06/18 07:00 [place] % (Auto) 5.9 % (1.0-6.0) 06/06/18 07:00 Eos % (Auto) 2.0 % (1.5-5.0) 06/06/18 07:00 Baso % (Auto) 0.3 % (0.0-3.0) 06/06/18 07:00 Gran # 5.18 (1.4-6.5) 06/06/18 07:00 Lymph # (Auto) 3.0 (1.2-3.4) 06/06/18 07:00 [place] # (Auto) 0.5 (0.1-0.6) 06/06/18 07:00 Eos # (Auto) 0.2 (0.0-0.7) 06/06/18 07:00 Baso # (Auto) 0.03 K/mm3 (0.0-2.0) 06/06/18 07:00 PT 11.7 SECONDS (9.4-12.5) 06/02/18 12:25 INR 1.02 06/02/18 12:25 APTT 63.7 Seconds (25.1-36.5) H 06/06/18 07:00 D-Dimer, Quantitative 4194 ng/mlDDU (0-243) H 06/02/18 12:25 Sodium 138 mmol/L (132-148) 06/06/18 07:00 Potassium 4.1 mmol/L (3.6-5.0) 06/06/18 07:00 Chloride 109 mmol/L (98-107) H 06/06/18 07:00 Carbon Dioxide 23 mmol/L (21-33) 06/06/18 07:00 Anion Gap 9 (10-20) L 06/06/18 07:00 BUN 11 mg/dL (7-21) 06/06/18 07:00 Creatinine 0.7 mg/dl (0.7-1.2) 06/06/18 07:00 Est GFR ( Amer) > 60 06/06/18 07:00 Est GFR (Non-Af Amer) > 60 06/06/18 07:00 Random Glucose 92 mg/dL (70-110) 06/06/18 07:00 Calcium 9.3 mg/dL (8.4-10.5) 06/06/18 07:00 Magnesium 2.0 mg/dL (1.7-2.2) 06/02/18 12:25 Iron 36 ug/dL (45-180) L 06/04/18 08:50 TIBC 371 ug/dL (265-497) 06/04/18 08:50 % Saturation 10 % (20-55) L 06/04/18 08:50 Ferritin 43.4 ng/mL 06/04/18 08:50 Total Bilirubin 0.3 mg/dL (0.2-1.3) 06/06/18 07:00 AST 22 U/L (14-36) 06/06/18 07:00 ALT 18 U/L (7-56) 06/06/18 07:00 Alkaline Phosphatase 49 U/L (38-126) 06/06/18 07:00 Lactate Dehydrogenase 646 U/L (333-699) 06/02/18 12:25 Total Creatine Kinase 45 U/L (35-230) 06/02/18 12:25 Troponin I 0.37 ng/mL H* D 06/03/18 00:40 NT-Pro-B Natriuret Pep 44.2 pg/mL (0-450) 06/02/18 12:25 Total Protein 7.5 g/dL (5.8-8.3) 06/06/18 07:00 Albumin 3.7 g/dL (3.0-4.8) 06/06/18 07:00 Globulin 3.8 gm/dL 06/06/18 07:00 Albumin/Globulin Ratio 1.0 (1.1-1.8) L 06/06/18 07:00 Triglycerides 167 mg/dL (35-160) H 06/03/18 05:15 Cholesterol 222 mg/dL (130-200) H 06/03/18 05:15 LDL Cholesterol Direct 123 mg/dL (0-129) 06/03/18 05:15 HDL Cholesterol 67 mg/dL (29-60) H 06/03/18 05:15 Urine Color Light yellow (YELLOW) 06/02/18 13:10 Urine Appearance Clear (CLEAR) 06/02/18 13:10 Urine pH 6.0 (4.7-8.0) 06/02/18 13:10 Ur Specific [place] 1.010 (1.005-1.035) 06/02/18 13:10 Urine Protein Negative mg/dL (<30 mg/dL) 06/02/18 13:10 Urine Glucose (UA) Negative mg/dL (NEGATIVE) 06/02/18 13:10 Urine Ketones Negative mg/dL (NEGATIVE) 06/02/18 13:10 Urine Blood Negative (NEGATIVE) 06/02/18 13:10 Urine Nitrate Negative (NEGATIVE) 06/02/18 13:10 Urine Bilirubin Negative (NEGATIVE) 06/02/18 13:10 Urine Urobilinogen 0.2 E.U./dL (<1 E.U./dL) 06/02/18 13:10 Ur Leukocyte Esterase Negative Zane/uL (NEGATIVE) 06/02/18 13:10 Urine Opiates Screen Negative (NEGATIVE) 06/02/18 13:10 Urine Methadone Screen Negative (NEGATIVE) 06/02/18 13:10 Ur Barbiturates Screen Negative (NEGATIVE) 06/02/18 13:10 Ur Phencyclidine Scrn Negative (NEGATIVE) 06/02/18 13:10 Ur Amphetamines Screen Negative (NEGATIVE) 06/02/18 13:10 U Benzodiazepines Scrn Negative (NEGATIVE) 06/02/18 13:10 U Oth Cocaine Metabols Negative (NEGATIVE) 06/02/18 13:10 U Cannabinoids Screen Negative (NEGATIVE) 06/02/18 13:10 - Hospital Course Hospital Course: Brandon Bowden DO PGY1 - Internal Medicine Occupational Therapy Assist - Hospital DC Summary Disclaimer: please note this is a brief synopsis of the patient's hospital course; for full hospital record please refer to EMR 38F w/ a PMH of HTN, Microcytic Anemia (receiving QW Iron transfusion), Uterine fibroids s/p myomectomy 07/2017, Menorrhagia, Left knee arthroscopic surgery 05/22/2018 at [facility] [place]; presented to [facility] [place] ED on 06/02 w/ c/o SOB and constant substernal CP. Upon evaluation patient was found to have bilateral submassive PE. Patient was also noted to have elevated troponin on admission. Initial EKG showed no evidence of heart strain or ischemia; she was subsequently started on heparin drip as per PE/DVT protocol. Pulmonology and Cardiology were consulted; patient underwent Cardiac echo which revealed EF 57% w/ mild pulmonary valve and tricuspid valve regurgitation. Bilateral LE Duplex showed DVT within RLE. She was monitored in ICU for hemodynamic stability; and maintained hemodynamic stability throughout hospitalization. Heme-Onc was consulted who recommended outpatient follow up and starting patient on NOAC. During her hospitalization she was noted to begin having withdrawal bleeding 2/2 discontinuation of her OCP; TVUS ordered which was only significant for uterine fibroids. Subsequently, OBGYN Consulted who recommended close monitoring of H/H and outpt follow up as well. Morning prior to discharge patient was seen and evaluated at bedside. No acute events were reported overnight. Bleeding was showing signs of improvement. Her H/H maintained >7. No symptoms of HD instability voiced; vitals remained stable overnight. Patient denied chest pain, sob, abd pain, n/v/d/c. Leg pain had improved. Vaginal bleeding improved. Prior to discharge, she was given follow up appt w/ Heme-Onc for 2 days after discharge where a repeat CBC will be performed. Upon discharge, Medications were reconciled and delivered to bedside. Follow up appointments, and discharge instructions were communicated to patient. Patient is medically optimized for discharge at this time. Discharge Exam - Head Exam Head Exam: ATRAUMATIC, NORMOCEPHALIC - Eye Exam Eye Exam: EOMI, Normal appearance, PERRL - Respiratory Exam Respiratory Exam: Clear to PA & Lateral, UNREMARKABLE - Cardiovascular Exam Cardiovascular Exam: RRR, +S1, +S2 - GI/Abdominal Exam GI & Abdominal Exam: Normal Bowel Sounds. absent: Unremarkable - Extremities Exam Additional comments: BL LE warm LLE with dressing CDI Mild tenderness to palp in RLE - Neurological Exam Neurological exam: Alert, CN II-XII Intact, Normal Gait, Oriented x3 - Psychiatric Exam Psychiatric exam: Normal Affect, Normal Mood - Skin Skin Exam: Dry, Intact, Normal Color, Warm Discharge Plan - Discharge Medications Prescriptions: Apixaban [Eliquis] 5 mg PO BID #60 tab - Follow Up Plan Condition: GUARDED Disposition: HOME/ ROUTINE Instructions: Uterine Fibroids (DC), Pulmonary Embolism (DC) Additional Instructions: Please follow up with your primary care doctor within 3-5 days of discharge. Please follow up with your [facility] Coder, Dr. Colon, on MondayJUNE 08 at 9:30am. YOU WILL NEED TO FOLLOW UP FOR REPEAT BLOOD COUNT. You were given a prescription for: 1. Eliquis 5mg TWICE PER DAY (Blood thinner) - we have given you 1 month supply. It will be continued either by your bucket chucker or your primary care doctor. Continue other home medications. Recommend to follow up with [facility] for heavy periods and uterine fibroids. Recommend to take Tylenol as needed for pain. Avoid other blood thinners such as Motrin as much as possible. Can use Motrin once at night for pain when having periods. If your symptoms return or worsen, please go to the nearest emergency department. Referrals: Shira Sanches MD [Staff Provider] - Claudia Patel MD [Family Provider] - Florentino Colon MD [Staff Provider] - <Rachelle Chen - Last Filed: 06/06/18 17:40> Provider - Provider Date of Admission: 06/02/18 15:33 Attending physician: Rachelle Chen MD Consults: 06/02/18 15:44 Cardiology Consult Stat Comment: Consulting Provider: Rivera Brasher Consulting Physician: Rivera Brasher Reason for Consult: Extensive PE Physician Consult Stat Comment: Consulting Provider: Leandro Cao Consulting Physician: Leandro Cao Reason for Consult: Extensive PE Pulmonology Consult Stat Comment: Consulting Provider: Leandro Cao Consulting Physician: Leandro Cao Reason for Consult: Extensive PE 06/04/18 12:27 Hematology Oncology Consult Routine Comment: Consulting Provider: Florentino Colon Consulting Physician: Florentino Colon Reason for Consult: DVT/ PE 06/05/18 14:13 Physician Consult Routine Comment: Consulting Provider: Alfa Romo Consulting Physician: Alfa Romo Reason for Consult: Menorrhagia Hospital Course - Lab Results Lab Results: Micro Results 06/02/18 21:09 Naris MRSA Culture (Admit) - Final MRSA NOT DETECTED Most Recent Lab Values WBC 8.9 10^3/uL (4.5-11.0) D 06/06/18 07:00 RBC 3.82 10^6/uL (3.5-6.1) 06/06/18 07:00 Hgb 8.8 g/dL (12.0-16.0) L 06/06/18 07:00 Hct 26.2 % (36.0-48.0) L 06/06/18 07:00 MCV 68.6 fl (80.0-105.0) L 06/06/18 07:00 MCH 23.0 pg (25.0-35.0) L 06/06/18 07:00 MCHC 33.6 g/dl (31.0-37.0) 06/06/18 07:00 RDW 19.2 % (11.5-14.5) H 06/06/18 07:00 Plt Count 262 10^3/uL (120.0-450.0) 06/06/18 07:00 MPV fl (7.0-11.0) 06/06/18 07:00 Gran % 58.5 % (50.0-68.0) 06/06/18 07:00 Lymph % (Auto) 33.3 % (22.0-35.0) 06/06/18 07:00 [place] % (Auto) 5.9 % (1.0-6.0) 06/06/18 07:00 Eos % (Auto) 2.0 % (1.5-5.0) 06/06/18 07:00 Baso % (Auto) 0.3 % (0.0-3.0) 06/06/18 07:00 Gran # 5.18 (1.4-6.5) 06/06/18 07:00 Lymph # (Auto) 3.0 (1.2-3.4) 06/06/18 07:00 [place] # (Auto) 0.5 (0.1-0.6) 06/06/18 07:00 Eos # (Auto) 0.2 (0.0-0.7) 06/06/18 07:00 Baso # (Auto) 0.03 K/mm3 (0.0-2.0) 06/06/18 07:00 PT 11.7 SECONDS (9.4-12.5) 06/02/18 12:25 INR 1.02 06/02/18 12:25 APTT 41.5 Seconds (25.1-36.5) H 06/06/18 13:05 D-Dimer, Quantitative 4194 ng/mlDDU (0-243) H 06/02/18 12:25 Sodium 138 mmol/L (132-148) 06/06/18 07:00 Potassium 4.1 mmol/L (3.6-5.0) 06/06/18 07:00 Chloride 109 mmol/L (98-107) H 06/06/18 07:00 Carbon Dioxide 23 mmol/L (21-33) 06/06/18 07:00 Anion Gap 9 (10-20) L 06/06/18 07:00 BUN 11 mg/dL (7-21) 06/06/18 07:00 Creatinine 0.7 mg/dl (0.7-1.2) 06/06/18 07:00 Est GFR ( Amer) > 60 06/06/18 07:00 Est GFR (Non-Af Amer) > 60 06/06/18 07:00 Random Glucose 92 mg/dL (70-110) 06/06/18 07:00 Calcium 9.3 mg/dL (8.4-10.5) 06/06/18 07:00 Magnesium 2.0 mg/dL (1.7-2.2) 06/02/18 12:25 Iron 36 ug/dL (45-180) L 06/04/18 08:50 TIBC 371 ug/dL (265-497) 06/04/18 08:50 % Saturation 10 % (20-55) L 06/04/18 08:50 Ferritin 43.4 ng/mL 06/04/18 08:50 Total Bilirubin 0.3 mg/dL (0.2-1.3) 06/06/18 07:00 AST 22 U/L (14-36) 06/06/18 07:00 ALT 18 U/L (7-56) 06/06/18 07:00 Alkaline Phosphatase 49 U/L (38-126) 06/06/18 07:00 Lactate Dehydrogenase 646 U/L (333-699) 06/02/18 12:25 Total Creatine Kinase 45 U/L (35-230) 06/02/18 12:25 Troponin I 0.37 ng/mL H* D 06/03/18 00:40 NT-Pro-B Natriuret Pep 44.2 pg/mL (0-450) 06/02/18 12:25 Total Protein 7.5 g/dL (5.8-8.3) 06/06/18 07:00 Albumin 3.7 g/dL (3.0-4.8) 06/06/18 07:00 Globulin 3.8 gm/dL 06/06/18 07:00 Albumin/Globulin Ratio 1.0 (1.1-1.8) L 06/06/18 07:00 Triglycerides 167 mg/dL (35-160) H 06/03/18 05:15 Cholesterol 222 mg/dL (130-200) H 06/03/18 05:15 LDL Cholesterol Direct 123 mg/dL (0-129) 06/03/18 05:15 HDL Cholesterol 67 mg/dL (29-60) H 06/03/18 05:15 Urine Color Light yellow (YELLOW) 06/02/18 13:10 Urine Appearance Clear (CLEAR) 06/02/18 13:10 Urine pH 6.0 (4.7-8.0) 06/02/18 13:10 Ur Specific [place] 1.010 (1.005-1.035) 06/02/18 13:10 Urine Protein Negative mg/dL (<30 mg/dL) 06/02/18 13:10 Urine Glucose (UA) Negative mg/dL (NEGATIVE) 06/02/18 13:10 Urine Ketones Negative mg/dL (NEGATIVE) 06/02/18 13:10 Urine Blood Negative (NEGATIVE) 06/02/18 13:10 Urine Nitrate Negative (NEGATIVE) 06/02/18 13:10 Urine Bilirubin Negative (NEGATIVE) 06/02/18 13:10 Urine Urobilinogen 0.2 E.U./dL (<1 E.U./dL) 06/02/18 13:10 Ur Leukocyte Esterase Negative Zane/uL (NEGATIVE) 06/02/18 13:10 Urine Opiates Screen Negative (NEGATIVE) 06/02/18 13:10 Urine Methadone Screen Negative (NEGATIVE) 06/02/18 13:10 Ur Barbiturates Screen Negative (NEGATIVE) 06/02/18 13:10 Ur Phencyclidine Scrn Negative (NEGATIVE) 06/02/18 13:10 Ur Amphetamines Screen Negative (NEGATIVE) 06/02/18 13:10 U Benzodiazepines Scrn Negative (NEGATIVE) 06/02/18 13:10 U Oth Cocaine Metabols Negative (NEGATIVE) 06/02/18 13:10 U Cannabinoids Screen Negative (NEGATIVE) 06/02/18 13:10 Attending/Attestation - Attestation I have personally seen and examined this patient.: Yes I have fully participated in the care of the patient.: Yes I have reviewed all pertinent clinical information, including history, physical exam and plan: Yes Notes (Text): 06/06/18 17:34 Attending note; Patient seen and examined with resident. Patient is alert and awake. Feeling much better. getting IV iron. Patient is a 38-year-old female past medical history significant for hypertension and anemia that presents to the emergency room with chest pressure and shortness of breath. Patient states that she had left knee surgery for ligament tear at [facility] on 05/22/2018. 1. Extensive bilateral pulmonary emboli. Treated with IV heparin drip . started on Eliquis. Currently off oral contraception pills. Cardiology evaluation appreciated. CTA chest shows extensive pulmonary thromboembolus, thrombus is seen in the periphery of the left main pulmonary artery with what appears to be occlusive thrombus left lower lobe and more peripheral segmental thrombi left upper lobe, additional pulmonary embolus detected in the right lower and right upper lobes, 6 mm pulmonary nodule left upper lobe, elective follow-up recommended. Bilateral lower extremity venous dopplers per radiologist showed acute occlusive thrombus in the right mid to distal femoral vein and popliteal vein. Case discussed with interventional radiologist. IVC filter is not recommended at this point. Advised to continue oral anticoagulant and and monitor. 2. Anemia. Chronic and due to irregular periods. menses is slowing down. Hemoglobin stable. Got 2 doses of IV iron. Oncology evaluation appreciated. Case discussed with Dr. Sanches in detail. Patient has follow-up appointment in 2 days. Patient stated that she follows up with for IV iron infusion therapy. 3. Vaginal bleeding; better today. Transvaginal ultrasound showed fibroid. Might need hysterectomy. Monitor bleeding closely. May start progesterone containing hormonal pills if needed. Patient will follow-up with her primary [facility] Dr. Oleary. disCharge home today. Follow-up with PMD Dr.Dr. Taylor. Follow up with oncology Dr. Colon on monday. Appointment made by us. Diagnosis, follow-up plan, treatment option discussed with patient in detail . 06/06/18 17:39
[2018-06-07 20:59] LABS: CARDIOLIPIN AB (IGA) <11 APL (<=11); CARDIOLIPIN AB (IGG) <14 GPL (<=14)
[2018-06-07 21:38] LABS: B2 GLYCOPROTEIN I AB(IGA) <9 SAU (<=20); B2 GLYCOPROTEIN I AB(IGG) <9 SGU (<=20); B2 GLYCOPROTEIN I AB(IGM) <9 SMU (<=20)
[2018-06-08 09:56] LABS: CARDIOLIPIN AB (IGM) <12 MPL (<=12); PHOSPHATIDYLSERINE AB IGA <20 U/mL (<20); PHOSPHATIDYLSERINE AB IGG <10 U/mL (<10); PHOSPHATIDYLSERINE AB IGM <25 U/mL (<25)
== END 2018-06-06 15:50 | disposition home or self-care (01) | DRG 541 ==
LOC: ED 11:31 → ERH 15:33 → ICU 21:03 → 2RSO 06-04 20:36
PROVIDERS: ADMIT Hospitalist; ATTEND Internal Medicine
PROC: 3E033GC Introduction of Other Therapeutic Substance into Peripheral Vein, Percutaneous Approach (ICD-10-PCS; principal; 2018-06-02)
DX: I26.99 Other pulmonary embolism without acute cor pulmonale (principal); I82.411 Acute embolism and thrombosis of right femoral vein; I82.431 Acute embolism and thrombosis of right popliteal vein; I36.1 Nonrheumatic tricuspid (valve) insufficiency; R09.02 Hypoxemia; N92.0 Excessive and frequent menstruation with regular cycle; I10 Essential (primary) hypertension; D50.9 Iron deficiency anemia, unspecified; R91.1 Solitary pulmonary nodule; F17.200 Nicotine dependence, unspecified, uncomplicated